=== PATIENT | female | born 1985 | race African-American/Black ===

== ENCOUNTER 2023-04-22 16:27 | Outpatient (REF) | payer BC, SELFPAY ==
[2023-04-22 17:08] LABS: Glucose CSF 52 mg/dL (40-70); Total Protein CSF 29 mg/dL (15-45); Total Protein CSF 31 mg/dL (15-45)
[2023-04-22 17:13] LABS: CSF Clarity CLEAR (CLEAR); CSF Color COLORLESS (COLORLESS); CSF Tube # 2
[2023-04-22 17:14] LABS: CSF Total Volume 20 mL; Red Blood Cell CSF 54 cubic mm; Red Blood Cell CSF Side 1 53; Red Blood Cell CSF Side 2 46; White Blood Cell CSF 0 cubic mm; White Blood Cell CSF Side 1 0; White Blood Cell CSF Side 2 0
[2023-04-22 17:15] LABS: CSF Clarity CLEAR (CLEAR); CSF Color COLORLESS (COLORLESS); CSF Total Volume 20 mL; CSF Tube # 3; Red Blood Cell CSF 161 cubic mm; Red Blood Cell CSF Side 1 135; Red Blood Cell CSF Side 2 155; White Blood Cell CSF 1 cubic mm; White Blood Cell CSF Side 1 2; White Blood Cell CSF Side 2 0
== END 2023-04-22 16:28 | disposition home or self-care (01) ==
LOC: LAB 16:27
PROVIDERS: Visit Provider Psychiatry & Neurology Neurology
DX: G93.2 Benign intracranial hypertension (principal)
CPT/HCPCS: 36415; 82164; 82945; 84157; 87070; 87205; 89050

== ENCOUNTER 2023-09-22 20:49 | Outpatient (OUT) | payer BC, SELFPAY ==
--- OUTSIDE RECORDS SUMMARY | 2023-09-22 20:51 | XMS_ITS | CCD ---
Author Organization [facility]iniSy[facility] Care Team Providers Care Teradata Solution Architect Name Role Phone REQUEST, DR NONE LISTED Primary Care Unavaila ble PAY, DR CORONA Consulting Unavailable PAY, DR CORONA Admitting Unavailable PAY, DR CORONA Attending Unavailable JACE BISWAS Consulting Unavailable Dago Quan Unavailable MD Dago Quan Attending Provider [phone] DO Loree Bri Primary Care Provider DO Loree Bri Primary Care Provider DO Eyad Chacko Emergency Provider MD Kevin Grullon Admit Provider MD Kevin Grullon Attending Provider [phone] MD Alfredo Gardner Other Provider DO Alejandro Wolff Other Provider MD Kirby Centeno Other Provider MD Shankar Perry Other Provider MD Bianka Aiken Other Provider [phone] MD Tran John Other Provider CELINE Clemente Other Provider MD Dago Quan Other Provider MD Sharif Rinaldi Other Provider DO Loree Bri Referring Provider [phone] DO Loree Bri Primary Care Provider DO Eyad Chacko Emergency Provider MD Kevin Grullon Admit Provider MD Kevin Grullon Attending Provider MD Alfredo Gardner Other Provider DO Alejandro Wolff Other Provider MD Kirby Centeno Other Provider [phone] MD Orladno Chaparro Other Provider MD Bianka Aiken Other Provider MD Tran John Other Provider CELINE Clemente Other Provider MD Dago Quan Other Provider MD Sharif Rinaldi Other Provider Rumschlag, DO Bri Referring Provider CELINE Capellan Attending Provider MD Dago Quan Attending Provider Samantha Capellan Admitting Unavailable Samantha Capellan Attending Unavailable Rumschlag, Bri Primary Care Unavailable Rumschlag, Bri Primary Care Unavailable Rumschlag, Bri Referring Unavailable Doamekpor, Kevin E Admitting Unavailab le Doamekpor, Kevin E Attending Unavailab le Rumschlag, Bri Primary Care Unavailable Alfredo Gardner Consulting Unavailabl e Doamekpor, Kevin E Admitting Unavailab le Kevin Grullon Attending Unavailab Alejandro Maldonado Consulting Unavailable Kirby Centeno Consulting Unavailable Orlando Chaparro Consulting Unavailable Bianka Aiken Consulting Unavailable Tran John Consulting Unavailable Jose Clemente Consulting Unavailable Asaad, Imad Consulting Unavailable Sharif Rinaldi Consulting Unavailable Asaad, Imad Admitting Unavailable Asaad, Imad Attending Unavailable Rumschlag, Bri Primary Care Unavailable Asaad, Imad Admitting Unavailable Asaad, Imad Attending Unavailable Rumschlag, Bri Primary Care Unavailable NURY RODRIGUEZ Referring Unavailable RUMSCHLAG, BRI K Primary Care Unavailable NURY RODRIGUEZ Attending Unavailable BRI AREVALO Referring Unavailable KAREN BROWNLEE Attending Unavailable NURY RODRIGUEZ Attending Unavailable BRI AREVALO Referring Unavailable PABLO VEE Attending Unavailable PABLO VEE Attending Unavailable Medications Current Medications Medication Drug Class(es) Dates Sig (Normalized) Sig (Original) [id number] actuat albuterol 0.09 mg/actuat metered dose inhaler (4 sources) beta2-Adrenergic Agonist take 1 puff(s) by inhalation every four hours as needed Albuterol Sulfate HFA 108 (90 Base) MCG/ACT 1 puff as needed Inhalation every 4 hrs Active take 1 puff(s) by in halation every four hours as needed Albuterol Sulfate HFA 108 (90 Base) MCG/ACT 1 puff as needed Inhalation every 4 hrs Active escitalopram 20 mg oral tablet (4 sources) Serotonin Reuptake Inhibitor take 1 tablet by mouth every twenty-four hours Lexapro 20 MG 1 tablet Orally Once a day Active loratadine 10 mg oral tablet (10 sources) Start: 08-07-19 take 1 tablet by mouth once daily Loratadine (Claritin) 10 mg Tablet Active 10 MG PO Daily August 05, 2022 11:00pm montelukast 10 mg oral tablet (11 sources) Leukotriene Receptor Antagonist Start: 01-22-20 Montelukast Active MG TABLET January 21, 2023 12:00am Start: 08-06-2022 End: 01-21-2023 take 10 mg by mouth once daily Montelukast Active 10 M G PO Daily January 20, 2023 11:00pm omeprazole 20 mg delayed release oral capsule (17 sources) Proton Pump Inhibitor Start: 03-26-2023 take 40 mg by mouth once daily Omeprazole Active 40 MG PO Daily March 26, 2023 1:06pm Start: 02-04-2023 take 1 capsule by [facility] once daily Omeprazole 40 MG 1 capsule 30 minutes before morning meal Orally Once a day for 30 days Jan, Active Start: 08-06-2022 End: 03-26-2023 take 20 mg by mouth once daily Omeprazole Discontinued 20 MG PO Daily January 21, 2023 11:00pm March 26, 2023 1:06pm Completed/Discontinued Medications Medication Drug Class(es) Dates Sig (Normalized) Sig (Original) Clindamycin Palmitate Hcl (Clindamycin Pediatric) 75 mg/5 mL recon soln (5 sources) Start: 01-21-2023 End: 01-22-2023 take 300 mg by mouth every six hours Clindamycin Palmitate Hcl (Clindamycin Pediatric) 75 mg/5 mL recon soln Discontinued 300 MG PO Q6H January 20, 2023 11:00pm January 22, 2023 3:37pm Start: 01-21-2023 End: 01-22-2023 take 300 mg by mouth every six hours Clindamycin Palmitate Hcl (Clindamycin Pediatric) 75 mg/5 mL recon soln Discontinued 300 MG PO Q6H January 21, 2023 12:00am January 22, 2023 4:37pm Start: 01-21-2023 Clindamycin Pa lmitate Hcl (Clindamycin Pediatric) 75 mg/5 mL recon soln Active January 21, 2023 12:00am fluticasone propionate 0.05 mg/actuat metered dose nasal spray (5 sources) Corticosteroid Start: 01-21-2023 End: 03-26-2023 Fluticasone Propionate Discontinued 1 SPRAY INTRANASAL Daily January 20, 2023 11:00pm March 26, 2023 1:06pm Start: 01-21-2023 Fluticasone Pr opionate Active INTRANASAL January 21, 2023 12:00am prednisoLONE (5 sources) Corticosteroid Start: 01-21-2023 End: 01-22-2023 Prednisolone Discontinued PO January 20, 2023 11:00pm January 22, 2023 3:37pm Start: 01-21-2023 End: 01-22-2023 Prednisolone Discontinued PO January 21, 2023 12:00am January 22, 2023 4:37pm Start: 01-21-2023 Prednisolone A ctive PO January 21, 2023 12:00am Problems Problem Classification Problem Date Documented Date Episodic/Chronic Anxiety disorders (1 source) Anxiety disorder, unspecified; Translations: [ANXIETY DISORDER UNSPECIFIED] Onset: 3 Chronic Conditions associated with dizziness or vertigo (1 source) Dizziness and giddiness; Translations: [Dizziness and giddiness] Onset: 3 Episodic Esophageal disorders (10 sources) Gastroesophageal reflux disease; Translations: [Gastro-esophageal reflux disease without esophagitis] Onset: 3 01-22-2023 Chronic Nonspecific chest pain (4 sources) Chest pain, unspecified; Translations: [CHEST PAIN UNSPECIFIED] Onset: 3 Episodic Other aftercare (1 source) snf (current) use of hormonal contraceptives; Translations: [ASSISTED HORMONAL CONTRACEPTIVES] Onset: 3 Episodic Other aftercare (1 source) Other supervisor intermediates (current) drug therapy; Translations: [OTH RE EXAMINER CURRENT DRUG THERAPY] Onset: 3 Episodic Other gastrointestinal disorders (4 sources) Feeling of lump in throat; Translations: [Other specified symptoms and signs involving the digestive system and abdomen] Episodic Other gastrointestinal disorders (9 sources) Dysphagia; Translations: [Dysphagia, unspecified] 01-21-2023 Episodic Other gastrointestinal disorders (8 sources) Dysphagia, unspecified; Translations: [Dysphagia, unspecified] Onset: 3 Episodic Other gastrointestinal disorders (5 sources) History of stricture of esophagus; Translations: [Personal history of other diseases of the digestive system] 01-21-2023 Episodic Other gastrointestinal disorders (6 sources) Personal history of other diseases of the digestive system; Translations: [Personal history of other diseases of digestive system] Onset: 3 01-21-2023 Episodic Other gastrointestinal disorders (1 source) Dysphagia, pharyngoesophageal phase; Translations: [Dysphagia, pharyngoesophageal phase] Onset: 4 Episodic Other nutritional; endocrine; and metabolic disorders (5 sources) Weight loss; Translations: [Abnormal weight loss] 01-21-2023 Episodic Other nutritional; endocrine; and metabolic disorders (6 sources) Abnormal weight loss; Translations: [Loss of weight] Onset: 3 01-21-2023 Episodic Results Test Name Value Interpretation Reference Range Facility [place] ESOPHAGUSon 04-21-2023 FL ESOPHAGUS FL ESOPHAGUS Esophagogram HISTORY: Dysphagia, pharyngoesophageal phase COMPARISON: None. PROCEDURE: With the patient upright and after the ingestion of effervescent granules, thick barium was ingested and fluoroscopic spot films of the esophagus and gastroesophageal junction were obtained. After this, the patient was turned prone and during the ingestion of thin barium, fluoroscopic spot films of the esophagus and gastroesophageal junction were obtained. FINDINGS: Test swallow was performed, without evidence of los aspiration. Esophageal caliber and mucosal pattern are normal. There are no esophageal strictures, diverticula, or abnormal filling defects. No hiatal hernia. Esophageal dysmotility, with splitting of the contrast bolus, rumination, tertiary contractions visualized. Spontaneous gastroesophageal reflux is observed to the level of the upper thoracic esophagus. 1.5 minutes fluoroscopy time utilized. Reference air kerma 4.4 mGy IMPRESSION: 1. Spontaneous gastroesophageal reflux. 2. Esophageal dysmotility. Finalized by Tanmay Philip on 04/21/2023 12:22 PM Normal [facility] HCG ( test) Jaaj keene Ql (U)Ordered By: Dago Quan on 03-30-2023 HCG ( test) Ql (U) Negative [facility] HCG,Urineon 03-30-2023 Beta HCG ( test) Ql (U) Negative Normal [facility] Comment on above: Result Comment: PERF ORMED BY: [place] [address] PATHOLOGIST HEALTHCARE APPLICATIONS ANALYST MAKENNA NEWMAN M.D. Performed By: #### U HCG #### [address] 03-30-2023 L ------ Specimen: [id number] Received: 03/30/23 Status: GRANT Delatorre Num: [id number] Spec Type: Surgical Subm Dr: Dago Quan MD Tissues: A Esophagus Biopsy (ESOPHAGUS BX) Procedures: HE/2, Gross/Micro L4 Age/ Patient Sex Location Account Attending Physician Brandi Gaviria 37/F [id number] Dago Quan MD SPEC NUM: [id number] RECD: 03/30/23 STATUS: GRANT DELATORRE NUM: [id number] ELMO: 03/30/[address] [facility] [address]: Dago Quan MD ENTERED: 03/30/[address] [facility] [address]: EDGARD TYPE: Surgical DEPT: S ORDERED: HE/2, Gross/Micro L4 ORDERED: HE/2, Gross/Micro L4 Pathological Diagnosis Esophagus, Biopsy: Reflux-type Changes. - No Evidence Of Eosinophilic Esophagitis. Clinical Information Dysphagia, rule out EOE Gross Description Received in formalin labeled with the patient's name, date of and esophagus biopsy rule out EOE are three montano tissues ranging from 0.2 x 0.1 x 0.1 cm to 0.3 x 0.2 x 0.1 cm. Entirely submitted in one cassette labeled A1. Microscopic Description Two H E slides reviewed. The microscopic examination confirms the diagnosis. CPT Codes 02143 Specimen: [id number] Received: 03/30/23 Status: GRANT Adkinsjohnson Num: [id number] Spec Type: Surgical Subm Dr: Dago Quan MD Tissues: A Esophagus Biopsy (ESOPHAGUS BX) Procedures: Paige CASAS/Maria Del Rosario L4 Patient: Brandi Gaviria [id number] (Continued) Signed (signature on file) Jovon Beasley MD 03/31/232141 [facility] MR head/brain wo/w ha MR head/brain wo/w con [facility] [place] [address] [place] [address] MRI Report Signed Patient: Brandi Gaviria MR#: [id number] : 1985 Acct:[id number] Age/Sex: 37 / F ADM Date: 03/19/23 Loc: MR Room: Type: [facility] Attending Dr: Samantha Capellan APRN Copies to: Samantha Capellan APRN Ordering Provider: Samantha Capellan APRN Date of Service: 03/19/23 MR/MR head/brain wo/w con: R42,R26.89 MR head/brain wo/w con 03/19/2023 1:50 PM SIGN AND SYMPTOMS: Vertigo, unsteady gait PROTOCOL: Multiplanar multisequence MR images of the brain were obtained with and without IV contrast CONTRAST: 16 mL of intravenous ProHance COMPARISON: None. FINDINGS: Extra axial spaces: Age appropriate. Hemorrhage: There is susceptibility in the left temporal lobe which is centrally T2 hyperintense consistent with a cavernous malformation. This measures approximately 1 cm in greatest dimension. Ventricular system: Within normal limits. Basal cisterns: Within normal limits and not effaced. Cerebral parenchyma: Normal in signal. Midline shift: None.. Cerebellum: Within normal limits. Brainstem: Within normal limits. OTHER: Calvarium: Normal marrow signal. Vascular system: Satisfactory flow voids within the anterior and posterior circulation. There is a developmental venous anomaly in the left temporal lobe. There is narrowing of the posterior lateral transverse sinuses. Visualized Paranasal sinuses: Within normal limits. Visualized Orbits: There is prominence of CSF along the optic nerve sheath complex bilaterally Visualized upper cervical spine: Within normal limits. Sella and skull base: There is flattening of the pituitary within the sella. MR/MR head/brain wo/w con IMPRESSION: There is susceptibility in the left temporal lobe which is centrally T2 hyperintense consistent with a cavernous malformation. This measures approximately 1 cm in greatest dimension. This is accompanied by a developmental venous anomaly. There are additional findings suspicious for intracranial hypertension. Impression dictated by: Chalo Lucas M.D.03/19/2023 3:37 PM Dictation Location: [place] [address] Transcribed By: JAYANT 03/19/23 1537 Dictated By: Chalo Lucas II, MD 03/19/23 1529 Signed By: 03/19/23 1537 Normal [facility] Activated partial thrombopla stin time (aPTT) in platelet poor plasma by coagulation aOrdered By: Kevin Grullon on 01-22-2023 aPTT Coag (PPP) [Time] 30.8 s 25.1-36.5 [facility] Comment on above: A hematocrit value g reater than 55% may lead to inaccurate results in coagulation testing. Patients having hematocrit values >55% require a special collection tube for coagulation studies. Please contact the laboratory at [phone] for redraw instructions. Alanine aminotransferase [En zymatic activity/volume] in Serum or PlasmaOrdered By: Kevin Grullon on 01-22-2023 ALT [Catalytic activity/Vol] 26 U/L 7-52 [facility] Albumin [Mass/volume] in Ser um or Plasma by Bromocresol green (BCG) dye binding methoOrdered By: Kevin Grullon on 01-22-2023 Albumin BCG dye [Mass/Vol] 3.4 g/dL 3.5-5.7 [facility] Alkaline phosphatase [Enzyma tic activity/volume] in Serum or PlasmaOrdered By: Kevin Grullon on 01-22-2023 ALP [Catalytic activity/Vol] 55 U/L 34-104 [facility] Aspartate aminotransferase [ Enzymatic activity/volume] in Serum or PlasmaOrdered By: Kevin Grullon on 01-22-2023 AST [Catalytic activity/Vol] 21 U/L 13-39 [facility] Basophils Auto (Bld) [#/Vol] Ordered By: Kevin Grullon on 01-22-2023 Basophils (Bld) [#/Vol] 0.1 10*3/uL 0.0-0.2 [facility] Basophils/100 WBC Auto (Bld) Ordered By: Kevin Grullon on 01-22-2023 Basophils/100 WBC (Bld) 1.5 % . [facility] Bilirubin.total [Mass/volume ] in Serum or PlasmaOrdered By: Kevin Grullon on 01-22-2023 Bilirubin [Mass/Vol] 0.3 mg/dL 0.3-1.0 [facility] Calcium [Mass/volume] in Ser um or PlasmaOrdered By: Kevin Grullon on 01-22-2023 Calcium [Mass/Vol] 8.9 mg/dL 8.6-10.3 [facility] Carbon dioxide, total [Moles /volume] in Serum or PlasmaOrdered By: Kevin Grullon on 01-22-2023 CO2 [Moles/Vol] 31.6 mmol/L 21.0-31.0 [facility] Chloride [Moles/volume] in S lakesha or PlasmaOrdered By: Kevin Grullon on 01-22-2023 Chloride [Moles/Vol] 105 mmol/L 98-107 [facility] Cholesterol [Mass/volume] in Serum or PlasmaOrdered By: Kevin Grullon on 01-22-2023 Cholesterol [Mass/Vol] 130 mg/dL 140-200 [facility] Comment on above: Chol less than 200 m g/dl low riskChol 201-239 mg/dl borderline riskChol 240 mg/dl and greater high risk Cholesterol in LDL Calc [Mas s/Vol]Ordered By: Kevin Grullon on 01-22-2023 Cholesterol in LDL [Mass/Vol] 90 mg/dL 0-100 [facility] Comment on above: LDL ATP III CLASSIFI CATIONLDL less than 100 mg/dL OptimalLDL 100-129 mg/dL Near or above optimalLDL 130-159 mg/dL Borderline highLDL 160-189 mg/dL HighLDL greater than 189 mg/dL Very high Cholesterol in VLDL Calc [Ma ss/Vol]Ordered By: Kevin Grullon on 01-22-2023 Cholesterol in VLDL [Mass/Vol] 20 mg/dL [facility] Complete Blood Count Auto Di ffon 01-22-2023 Basophils (Bld) [#/Vol] 0.1 10*3/uL Normal 0.0-0.2 [facility] Comment on above: Result Comment: PERF ORMED BY: [facility] [address] PATHOLOGIST HEALTHCARE APPLICATIONS ANALYST MAKENNA NEWMAN M.D. Performed By: #### P TT, CMP, CBC, TSH3 wRFLX, LIPID, PT #### [address] Basophils/100 WBC (Bld) 1.5 % Normal . [facility] Comment on above: Performed By: #### P TT, CMP, CBC, TSH3 wRFLX, LIPID, PT #### [address] Eosinophils (Bld) [#/Vol] 0.1 10*3/uL Normal 0.0-0.45 [facility] Comment on above: Performed By: #### P TT, CMP, CBC, TSH3 wRFLX, LIPID, PT #### [address] Eosinophils/100 WBC (Bld) 2.0 % Normal . [facility] Comment on above: Performed By: #### P TT, CMP, CBC, TSH3 wRFLX, LIPID, PT #### [address] Erythrocyte distribution width (RBC) [Ratio] 14.2 % Normal 11.9-15.3 [facility] Comment on above: Performed By: #### P TT, CMP, CBC, TSH3 wRFLX, LIPID, PT #### [address] Hematocrit (Bld) [Volume fraction] 35.1 % Normal 34.0-46.4 [facility] Comment on above: Performed By: #### P TT, CMP, CBC, TSH3 wRFLX, LIPID, PT #### [address] Hemoglobin (Bld) [Mass/Vol] 11.5 g/dL Low 11.8-15.4 [facility] Comment on above: Performed By: #### P TT, CMP, CBC, TSH3 wRFLX, LIPID, PT #### [address] [place] [address] [place] Lymphocytes (Bld) [#/Vol] 2.5 10*3/uL Normal 1.00-4.8 [facility] Comment on above: Performed By: #### P TT, CMP, CBC, TSH3 wRFLX, LIPID, PT #### [address] Lymphocytes/100 WBC (Bld) 37.3 % Normal . [facility] Comment on above: Performed By: #### P TT, CMP, CBC, TSH3 wRFLX, LIPID, PT #### [address] MCH (RBC) [Entitic mass] 27.7 pg Normal 24.7-34.3 [facility] Comment on above: Performed By: #### P TT, CMP, CBC, TSH3 wRFLX, LIPID, PT #### [address] MCV (RBC) [Entitic vol] 84.4 fL Normal 80-100 [facility] Comment on above: Performed By: #### P TT, CMP, CBC, TSH3 wRFLX, LIPID, PT #### [address] Mean Corpuscular HGB Conc 32.8 g/dL Normal 32.0-35.0 [facility] Comment on above: Performed By: #### P TT, CMP, CBC, TSH3 wRFLX, LIPID, PT #### [address] Monocytes (Bld) [#/Vol] 0.4 10*3/uL Normal 0.0-0.8 [facility] Comment on above: Performed By: #### P TT, CMP, CBC, TSH3 wRFLX, LIPID, PT #### [address] Monocytes/100 WBC (Bld) 6.4 % Normal . [facility] Comment on above: Performed By: #### P TT, CMP, CBC, TSH3 wRFLX, LIPID, PT #### [facility] [address] [place] [address] [place] Neutrophils (Bld) [#/Vol] 3.5 10*3/uL Normal 1.8-7.7 [facility] Comment on above: Performed By: #### P TT, CMP, CBC, TSH3 wRFLX, LIPID, PT #### [facility] [address] [place] [address] [place] Neutrophils/100 WBC (Bld) 52.8 % Normal . [facility] Comment on above: Performed By: #### P TT, CMP, CBC, TSH3 wRFLX, LIPID, PT #### [place] [address] [place] NRBC% 0.1 /100{WBC} Normal 0-0.5 [facility] Comment on above: Performed By: #### P TT, CMP, CBC, TSH3 wRFLX, LIPID, PT #### [address] Platelet mean volume (Bld) [Entitic vol] 10.3 fL Normal 6.3-10.7 [facility] Comment on above: Performed By: #### P TT, CMP, CBC, TSH3 wRFLX, LIPID, PT #### [place] [address] [place] Platelets (Bld) [#/Vol] 244 10*3/uL Normal 150-450 [facility] Comment on above: Performed By: #### P TT, CMP, CBC, TSH3 wRFLX, LIPID, PT #### [place] [address] [place] RBC (Bld) [#/Vol] 4.16 10*6/uL Normal 3.60-5.00 [facility] Comment on above: Performed By: #### P TT, CMP, CBC, TSH3 wRFLX, LIPID, PT #### [place] [address] [place] WBC (Bld) [#/Vol] 6.7 10*3/uL Normal 3.8-11.6 [facility] Comment on above: Performed By: #### P TT, CMP, CBC, TSH3 wRFLX, LIPID, PT #### [facility] [address] [place] [address] Comprehensive Metabolic Pane warner 01-22-2023 Albumin [Mass/Vol] 3.4 g/dL Low 3.5-5.7 [facility] Comment on above: Order Comment: FASTI NG Y Performed By: #### P TT, CMP, CBC, TSH3 wRFLX, LIPID, PT #### [facility] [address] [place] [address] Albumin/Globulin [Mass ratio] 1.3 {ratio} Normal [facility] Comment on above: Order Comment: FASTI NG Y Performed By: #### P TT, CMP, CBC, TSH3 wRFLX, LIPID, PT #### [address] ALP [Catalytic activity/Vol] 55 U/L Normal 34-104 [facility] Comment on above: Order Comment: FASTI NG Y Performed By: #### P TT, CMP, CBC, TSH3 wRFLX, LIPID, PT #### [facility] [address] [place] [address] ALT [Catalytic activity/Vol] 26 U/L Normal 7-52 [facility] Comment on above: Order Comment: FASTI NG Y Performed By: #### P TT, CMP, CBC, TSH3 wRFLX, LIPID, PT #### [facility] [address] [place] [address] Anion gap [Moles/Vol] 8.4 mmol/L Normal 6.0-15.0 [facility] Comment on above: Order Comment: FASTI NG Y Performed By: #### P TT, CMP, CBC, TSH3 wRFLX, LIPID, PT #### [address] AST [Catalytic activity/Vol] 21 U/L Normal 13-39 [facility] Comment on above: Order Comment: FASTI NG Y Performed By: #### P TT, CMP, CBC, TSH3 wRFLX, LIPID, PT #### [facility] [address] Bilirubin [Mass/Vol] 0.3 mg/dL Normal 0.3-1.0 [facility] Comment on above: Order Comment: FASTI NG Y Performed By: #### P TT, CMP, CBC, TSH3 wRFLX, LIPID, PT #### [facility] [address] Calcium [Mass/Vol] 8.9 mg/dL Normal 8.6-10.3 [facility] Comment on above: Order Comment: FASTI NG Y Performed By: #### P TT, CMP, CBC, TSH3 wRFLX, LIPID, PT #### [facility] [address] [place] [address] Chloride [Moles/Vol] 105 mmol/L Normal 98-107 [facility] Comment on above: Order Comment: FASTI NG Y Performed By: #### P TT, CMP, CBC, TSH3 wRFLX, LIPID, PT #### [facility] [address] [place] [address] CO2 [Moles/Vol] 31.6 mmol/L High 21.0-31.0 [facility] Comment on above: Order Comment: FASTI NG Y Performed By: #### P TT, CMP, CBC, TSH3 wRFLX, LIPID, PT #### [facility] [address] [place] [address] Creatinine [Mass/Vol] 0.77 mg/dL Normal 0.60-1.20 [facility] Comment on above: Order Comment: FASTI NG Y Performed By: #### P TT, CMP, CBC, TSH3 wRFLX, LIPID, PT #### [facility] [address] [place] [address] [place] Creatinine Clr Calc Pharmacy 97.37 [facility] Comment on above: Order Comment: FASTI NG Y Performed By: #### P TT, CMP, CBC, TSH3 wRFLX, LIPID, PT #### [facility] [address] [place] [address] [place] GFR/1.73 sq M.predicted MDRD (S/P/Bld) [Vol rate/Area] mL/min/{1.73_m2} [facility] Comment on above: Order Comment: FASTI NG Y Performed By: #### P TT, CMP, CBC, TSH3 wRFLX, LIPID, PT #### [facility] [address] Globulin (S) [Mass/Vol] 2.7 g/dL [facility] Comment on above: Order Comment: FASTI NG Y Performed By: #### P TT, CMP, CBC, TSH3 wRFLX, LIPID, PT #### [facility] [address] Glucose [Mass/Vol] 101 mg/dL High 70-100 [facility] Comment on above: Order Comment: FASTI NG Y Result Comment: [place] Glucose Reference Range is dependent on time and content of last meal. Glucose of more than 200 mg/dL in a nonstressed, ambulatory subject supports the diagnosis of Diabetes Mellitus. ADA recommended reference range Performed By: #### P TT, CMP, CBC, TSH3 wRFLX, LIPID, PT #### [facility] [address] [place] [address] Potassium [Moles/Vol] 4.0 mmol/L Normal 3.5-5.1 [facility] Comment on above: Order Comment: FASTI NG Y Performed By: #### P TT, CMP, CBC, TSH3 wRFLX, LIPID, PT #### [facility] [address] Protein [Mass/Vol] 6.1 g/dL Low 6.4-8.9 [facility] Comment on above: Order Comment: FASTI NG Y Performed By: #### P TT, CMP, CBC, TSH3 wRFLX, LIPID, PT #### [facility] [address] Sodium [Moles/Vol] 141 mmol/L Normal 136-145 [facility] Comment on above: Order Comment: FASTI NG Y Performed By: #### P TT, CMP, CBC, TSH3 wRFLX, LIPID, PT #### [facility] [address] [place] [id number] [place] Urea nitrogen [Mass/Vol] 6 mg/dL Low 7-25 [facility] Comment on above: Order Comment: FASTI NG Y Performed By: #### P TT, CMP, CBC, TSH3 wRFLX, LIPID, PT #### [facility] [address] [place] [id number] [place] Creatinine [Mass/volume] in Serum or PlasmaOrdered By: Kevin Grullon on 01-22-2023 Creatinine [Mass/Vol] 0.77 mg/dL 0.60-1.20 [facility] Eosinophils Auto (Bld) [#/Vo l]Ordered By: Kevin Grullon on 01-22-2023 Eosinophils (Bld) [#/Vol] 0.1 10*3/uL 0.0-0.45 [facility] Eosinophils/100 WBC Auto (Bl d)Ordered By: Kevin Grullon on 01-22-2023 Eosinophils/100 WBC (Bld) 2.0 % . [facility] Erythrocyte distribution wid th Auto (RBC) [Ratio]Ordered By: Kevin Grullon on 01-22-2023 Erythrocyte distribution width (RBC) [Ratio] 14.2 % 11.9-15.3 [facility] Globulin Calc (S) [Mass/Vol] Ordered By: Kevinwilliams Grullon on 01-22-2023 Globulin (S) [Mass/Vol] 2.7 g/dL [facility] Glucose [Mass/volume] in Ser um or PlasmaOrdered By: Kevin Grullon on 01-22-2023 Glucose [Mass/Vol] 101 mg/dL 70-100 [facility] Comment on above: ADA recommended refe rence rangeRandom Glucose Reference Range is dependent on time and content of last meal. Glucose of more than 200 mg/dL in a nonstressed, ambulatory subject supports the diagnosis of Diabetes Mellitus. HCG ( test) IA.rapi d Ql (U)Ordered By: Dago Quan on 01-22-2023 HCG ( test) Ql (U) Negative [facility] HCG,Urineon 10-27-2023 Beta HCG ( test) Ql (U) Negative Normal [facility] Comment on above: Result Comment: PERF ORMED BY: [place] [address] PATHOLOGIST HEALTHCARE APPLICATIONS ANALYST MAKENNA NEWMAN M.D. Performed By: #### U HCG #### [address] Hematocrit Auto (Bld) [Volum e fraction]Ordered By: Kevin Grullon on 01-22-2023 Hematocrit (Bld) [Volume fraction] 35.1 % 34.0-46.4 [facility] Hemoglobin [Mass/volume] in BloodOrdered By: Kevin [facility] on 01-22-2023 Hemoglobin (Bld) [Mass/Vol] 11.5 g/dL 11.8-15.4 [facility] INR in Platelet poor plasma by Coagulation assayOrdered By: Kevin [facility] on 01-22-2023 INR Coag (PPP) [Relative time] 1.1 {INR} [facility] Comment on above: INR Therapeutic Rang e A) Pre- and Peroperative OAT started two weeks before surgery. NOT HIP SURGERY: 1.5 - 2.5 HIP SURGERY: 2 - 3B) Primary and secondary prevention of venous THROMBOSIS: 2 - 3C) Active venous thrombosis, pulmonary embolismand prevention of recurrent venous thrombosis: 2 - 3D) Prevention of arterial thromboembolismincluding patients with mechanical heart valves: 3 - 4.5 [facility] 01-22-2023 L ------ Specimen: [id number] Received: 01/22/23 Status: GRANT Delatorre Num: [id number] Spec Type: Surgical Subm Dr: Dago Quan MD Tissues: A Esophagus Biopsy (ESOPHAGEAL STRICTURE) Procedures: PAS - LGRN, HE/5, Gross/Micro L4, GMS II Dark Age/ Patient Sex Location Account Attending Physician Brandi Gaviria 37/F [id number] Kevin Grullon MD SPEC NUM: [id number] RECD: 01/22/23 STATUS: GRANT DELATORRE NUM: [id number] ELMO: 01/22/23 DR: Dago Quan MD ENTERED: 01/22/[address] [facility] [address]: EDGARD TYPE: Surgical DEPT: S ORDERED: PAS - LGRN, HE/5, Gross/Micro L4, GMS II Dark ORDERED: PAS - LGRN, HE/5, Gross/Micro L4, GMS II Dark Pathological Diagnosis Esophagus, stricture, biopsy: - Squamous esophageal and cardiac mucosa with acute and chronic nonspecific cardio- esophagitis - Negative for intestinal metaplasia or dysplasia Note: Special staining with GMS and PAS is negative for fungal microorganisms. Appropriate positive controls reviewed. Clinical Information Dysphagia Gross Description Received in formalin labeled with the patient's name, date of and esophageal stricture are two montano tissues measuring 0.1 cm and 0.2 cm. Entirely submitted in one cassette labeled A1. Microscopic Description Two H E slides reviewed. The microscopic examination confirms the diagnosis. Specimen: [id number] Received: 01/22/23 Status: GRANT Delatorre Num: [id number] Spec Type: Surgical Subm Dr: Dago Quan MD Tissues: A Esophagus Biopsy (ESOPHAGEAL STRICTURE) Procedures: ANH MITCHELL, SIVAKUMAR/5, Gross/Micro L4, GMS II Dark Patient: Brandi Gaviria [id number] (Continued) Specimen: [id number] Received: 01/22/23 (Continued) Signed (signature on file) Kalpesh Alva MD 01/26/23 4689 Specimen: [id number] Received: 01/22/23 Status: GRANT Delatorre Num: [id number] Spec Type: Surgical Subm Dr: Dago Quan MD Tissues: A Esophagus Biopsy (ESOPHAGEAL STRICTURE) Procedures: ANH - MORRISN, HE/5, Gross/Micro L4, GMS II Dark Patient: Evangelina Gaviriayogi Almodovar [id number] (Continued) Specimen: [id number] Received: 01/22/23 (Continued) CPT Codes 28237 Specimen: [id number] Received: 01/22/23 Status: GRANT Delatorre Num: [id number] Spec Type: Surgical Subm Dr: Dago Quan MD Tissues: A Esophagus Biopsy (ESOPHAGEAL STRICTURE) Procedures: ANH - MORRISN, HE/5, Gross/Micro L4, GMS II Dark Patient: Brandi Gaviria [id number] (Continued) Signed (signature on file) Kalpesh Alva MD 01/26/23 1649 [facility] Leukocytes [#/volume] correc ion for nucleated erythrocytes in Blood by Automated counOrdered By: Kevin Grullon on 01-22-2023 WBC corrected for nucl RBC Auto (Bld) [#/Vol] 6.7 10*3/uL 3.8-11.6 [facility] Lipid Panelon 01-22-2023 Cholesterol [Mass/Vol] 130 mg/dL Low 140-200 [facility] Comment on above: Order Comment: LIDIA [place] Result Comment: Chol less than 200 mg/dl low risk Chol 201-239 mg/dl borderline risk Chol 240 mg/dl and greater high risk Performed By: #### P TT, CMP, CBC, TSH3 wRFLX, LIPID, PT ####[facility] [place] [id number] [facility] Cholesterol in HDL [Mass/Vol] 20 mg/dL Low 23-92 [facility] Comment on above: Order Comment: FASTI NG Y Result Comment: HDL CHOL ATP-III CLASSIFICATION Cardiovascular Risk HDL > or equal to 60 mg/dL LOW HDL < 40 mg/dL HIGH Performed By: #### P TT, CMP, CBC, TSH3 wRFLX, LIPID, PT ####[address] [place] [address] [facility] Cholesterol.total/Chol esterol in HDL [Mass ratio] 6.5 {ratio} Normal <5.0 [facility] Comment on above: Order Comment: FASTI NG Y Performed By: #### P TT, CMP, CBC, TSH3 wRFLX, LIPID, PT ####[place] [id number] [facility] LDL Cholesterol,Calculated 90 mg/dL Normal 0-100 [facility] Comment on above: Order Comment: FASTI NG Y Result Comment: LDL ATP III CLASSIFICATION LDL less than 100 mg/dL Optimal LDL 100-129 mg/dL Near or above optimal LDL 130-159 mg/dL Borderline high LDL 160-189 mg/dL High LDL greater than 189 mg/dL Very high Performed By: #### P TT, CMP, CBC, TSH3 wRFLX, LIPID, PT ####[place] [id number] [facility] Triglyceride w/Reflex 100 mg/dL Normal 0-149 [facility] Comment on above: Order Comment: FASTI NG Y Result Comment: TRIG ATP III CLASSIFICATION TRIG less than 150 mg/dL Normal TRIG 150-199 mg/dL Borderline high TRIG 200-500 mg/dL High TRIG greater than 500 mg/dL Very high Standard traceable to the Center for Disease Conrtrol and Prevention (CDC) test method. Performed By: #### P TT, CMP, CBC, TSH3 wRFLX, LIPID, PT ####[place] [id number] [facility] VLDL CHOLESTEROL 20 mg/dL Normal [facility] Comment on above: Order Comment: FASTI KIMBERLEE Y Performed By: #### P TT, CMP, CBC, TSH3 wRFLX, LIPID, PT ####[facility] [id number] Lymphocytes Auto (Bld) [#/Vo l]Ordered By: Kevin Grullon on 01-22-2023 Lymphocytes (Bld) [#/Vol] 2.5 10*3/uL 1.00-4.8 [facility] Lymphocytes/100 WBC Auto (Bl d)Ordered By: Kevin Grullon on 01-22-2023 Lymphocytes/100 WBC (Bld) 37.3 % . [facility] MCH Auto (RBC) [Entitic mass ]Ordered By: Kevin Grullon on 01-22-2023 MCH (RBC) [Entitic mass] 27.7 pg 24.7-34.3 [facility] MCHC Auto (RBC) [Mass/Vol]Or dered By: Kevin Grullon on 01-22-2023 MCHC (RBC) [Mass/Vol] 32.8 g/dL 32.0-35.0 [facility] MCV Auto (RBC) [Entitic vol] Ordered By: Kevin Grullon on 01-22-2023 MCV (RBC) [Entitic vol] 84.4 fL 80-100 [facility] Monocytes Auto (Bld) [#/Vol] Ordered By: Kevin Grullon on 01-22-2023 Monocytes (Bld) [#/Vol] 0.4 10*3/uL 0.0-0.8 [facility] Monocytes/100 WBC Auto (Bld) Ordered By: Kevin Grullon on 01-22-2023 Monocytes/100 WBC (Bld) 6.4 % . [facility] Neutrophils Auto (Bld) [#/Vo l]Ordered By: Kevin Grullon on 01-22-2023 Neutrophils (Bld) [#/Vol] 3.5 10*3/uL 1.8-7.7 [facility] Neutrophils/100 WBC Auto (Bl d)Ordered By: Kevin Grullon on 01-22-2023 Neutrophils/100 WBC (Bld) 52.8 % . [facility] No Panel InformationOrdered By: Kevin Grullon on 01-22-2023 Estimated GFR (CKD-EPI) > 60.0 mL/Min [facility] Creatinine Clearance (Chem 97.37 [facility] Nucleated erythrocytes [Pres ence] in Blood by Automated countOrdered By: Kevin Grullon on 01-22-2023 Nucleated RBC Auto Ql (Bld) 0.1 /100{WBC} 0-0.5 [facility] Partial Thromboplastin Timeo n 01-22-2023 aPTT Coag (Bld) [Time] 30.8 s Normal 25.1-36.5 [facility] Comment on above: Result Comment: A he matocrit value greater than 55% may lead to inaccurate results in coagulation testing. Patients having hematocrit values >55% require a special collection tube for coagulation studies. Please contact the laboratory at [phone] for redraw instructions. PERFORMED BY: [facility] [address] [place] [address] PATHOLOGIST HEALTHCARE APPLICATIONS ANALYST MAKENNA NEWMAN M.D. Performed By: #### P TT, CMP, CBC, TSH3 wRFLX, LIPID, PT ####[facility] [id number] [place] [address] [facility] Platelet mean volume Auto (B ld) [Entitic vol]Ordered By: Kevin Grullon on 01-22-2023 Platelet mean volume (Bld) [Entitic vol] 10.3 fL 6.3-10.7 [facility] Platelets Auto (Bld) [#/Vol] Ordered By: Kevin Grullon on 01-22-2023 Platelets (Bld) [#/Vol] 244 10*3/uL 150-450 [facility] Potassium [Moles/volume] in Serum or PlasmaOrdered By: Kevin Grullon on 01-22-2023 Potassium [Moles/Vol] 4.0 mmol/L 3.5-5.1 [facility] Protein [Mass/volume] in Ser um or PlasmaOrdered By: Kevin Grullon on 01-22-2023 Protein [Mass/Vol] 6.1 g/dL 6.4-8.9 [facility] Prothrombin Time INRon 01-22 INR Coag (PPP) [Relative time] 1.1 {INR} Normal [facility] Comment on above: Result Comment: INR Therapeutic Range A) Pre- and Peroperative OAT started two weeks before surgery. NOT HIP SURGERY: 1.5 - 2.5 HIP SURGERY: 2 - 3 B) Primary and secondary prevention of venous THROMBOSIS: 2 - 3 C) Active venous thrombosis, pulmonary embolism and prevention of recurrent venous thrombosis: 2 - 3 D) Prevention of arterial thromboembolism including patients with mechanical heart valves: 3 - 4.5 Performed By: #### P TT, CMP, CBC, TSH3 wRFLX, LIPID, PT ####[facility] [place] [id number] [facility] PT Coag (PPP) [Time] 13.2 s High 9.0-12.9 [facility] Comment on above: Result Comment: A he matocrit value greater than 55% may lead to inaccurate results in coagulation testing. Patients having hematocrit values >55% require a special collection tube for coagulation studies. Please contact the laboratory at [phone] for redraw instructions. Performed By: #### P TT, CMP, CBC, TSH3 wRFLX, LIPID, PT ####[facility] [place] [id number] [facility] Prothrombin time (PT)Ordered By: Kevin Grullon on 01-22-2023 PT Coag (PPP) [Time] 13.2 s 9.0-12.9 [facility] Comment on above: A hematocrit value g reater than 55% may lead to inaccurate results in coagulation testing. Patients having hematocrit values >55% require a special collection tube for coagulation studies. Please contact the laboratory at [phone] for redraw instructions. RBC Auto (Bld) [#/Vol]Ordere d By: Kevin Grullon on 01-22-2023 RBC (Bld) [#/Vol] 4.16 10*6/uL 3.60-5.00 [facility] Serum or plasma albumin/glob ulin mass ratioOrdered By: Kevin Grullon on 01-22-2023 Albumin/Globulin [Mass ratio] 1.3 {ratio} [facility] Serum or plasma anion gap de terminationOrdered By: Kevin Grullon on 01-22-2023 Anion gap [Moles/Vol] 8.4 mmol/L 6.0-15.0 [facility] Serum or plasma high density lipoprotein (HDL) cholesterol measurementOrdered By: Kevin Grullon on 01-22-2023 Cholesterol in HDL [Mass/Vol] 20 mg/dL 23-92 [facility] Comment on above: HDL CHOL ATP-III CLA SSIFICATION Cardiovascular RiskHDL > or equal to 60 mg/dL LOWHDL < 40 mg/dL HIGH Serum or plasma total choles terol/high density lipoprotein (HDL) cholesterol mass ratOrdered By: Kevin Grullon on 01-22-2023 Cholesterol.total/Chol esterol in HDL [Mass ratio] 6.5 {ratio} <5.0 [facility] Sodium [Moles/volume] in Ser um or PlasmaOrdered By: Kevin Grullon on 01-22-2023 Sodium [Moles/Vol] 141 mmol/L 136-145 [facility] Thyroid Stim Hormone w/Rflxo n 01-22-2023 Thyroid Stim Hormone w/Rflx 1.46 u[iU]/mL Normal 0.45-5.33 [facility] Comment on above: Order Comment: FASTI NG Y Result Comment: PERF ORMED BY: [facility] [address] [place] [address] PATHOLOGIST HEALTHCARE APPLICATIONS ANALYST MAKENNA NEWMAN M.D. Performed By: #### P TT, CMP, CBC, TSH3 wRFLX, LIPID, PT ####[facility] [id number] [place] [address] [facility] Thyrotropin [Units/volume] i n Serum or PlasmaOrdered By: Kevin Grullon on 01-22-2023 TSH Qn 1.46 m[IU]/L 0.45-5.33 [facility] Triglyceride [Mass/volume] i n Serum or PlasmaOrdered By: Kevin Grullon on 01-22-2023 Triglyceride [Mass/Vol] 100 mg/dL 0-149 [facility] Comment on above: TRIG ATP III CLASSIF ICATIONTRIG less than 150 mg/dL NormalTRIG 150-199 mg/dL Borderline highTRIG 200-500 mg/dL High TRIG greater than 500 mg/dL Very highStandard traceable to the Center for Disease Conrtrol and Prevention (CDC) test method. Urea nitrogen [Mass/volume] in Serum or PlasmaOrdered By: Kevin Grullon on 01-22-2023 Urea nitrogen [Mass/Vol] 6 mg/dL 10-20 [facility] WBC Auto (Bld) [#/Vol]Ordere d By: Kevin Grullon on 01-22-2023 WBC (Bld) [#/Vol] 6.7 10*3/uL 3.8-11.6 [facility] Basic Metabolic Panelon 12-28 Anion gap [Moles/Vol] 12.9 mmol/L Normal 6.0-15.0 [facility] Comment on above: Performed By: #### C BC BMP, HCGQUAL #### [facility] [address] Calcium [Mass/Vol] 9.7 mg/dL Normal 8.6-10.3 [facility] Comment on above: Performed By: #### C BC, BMP, HCGQUAL #### [facility] [address] [place] [address] [place] Chloride [Moles/Vol] 102 mmol/L Normal 98-107 [facility] Comment on above: Performed By: #### C BC, BMP, HCGQUAL #### [facility] [address] [place] [id number] [place] CO2 [Moles/Vol] 27.8 mmol/L Normal 21.0-31.0 [facility] Comment on above: Performed By: #### C BC, BMP, HCGQUAL #### [facility] [address] Creatinine [Mass/Vol] 0.81 mg/dL Normal 0.60-1.20 [facility] Comment on above: Performed By: #### C MISTI HENSLEY HCGQUAL #### [address] Creatinine Clr Calc Pharmacy 91.43 [facility] Comment on above: Performed By: #### C MISTI HENSLEY, HCGQUAL #### [address] GFR/1.73 sq M.predicted MDRD (S/P/Bld) [Vol rate/Area] mL/min/{1.73_m2} [facility] Comment on above: Performed By: #### C MISTI HENSLEY HCGQUAL #### [address] Glucose [Mass/Vol] 114 mg/dL High 70-100 [facility] Comment on above: Result Comment: [place] Glucose Reference Range is dependent on time and content of last meal. Glucose of more than 200 mg/dL in a nonstressed, ambulatory subject supports the diagnosis of Diabetes Mellitus. ADA recommended reference range Performed By: #### C MISTI HENSLEY HCGQUAL #### [address] Potassium [Moles/Vol] 3.7 mmol/L Normal 3.5-5.1 [facility] Comment on above: Performed By: #### C MISTI HENSLEY, HCGQUAL #### [address] Sodium [Moles/Vol] 139 mmol/L Normal 136-145 [facility] Comment on above: Performed By: #### C MISTI HENSLEY, HCGQUAL #### [address] Urea nitrogen [Mass/Vol] 6 mg/dL Low 7-25 [facility] Comment on above: Performed By: #### C MISTI HENSLEY, HCGQUAL #### [address] Basophils Auto (Bld) [#/Vol] Ordered By: Eyad Chacko on 01-21-2023 Basophils (Bld) [#/Vol] 0.1 10*3/uL 0.0-0.2 [facility] Basophils/100 WBC Auto (Bld) Ordered By: Eyad Chacko on 01-21-2023 Basophils/100 WBC (Bld) 0.8 % . [facility] CT chest w conon 01-21-2023 CT chest w con [facility] [place] [address] [place], [place] [id number] CT Scan Report Signed Patient: Brandi Gaviria MR#: [id number] : 1985 Acct:[id number] Age/Sex: 37 / F ADM Date: 01/21/23 Loc: ER Room: Type: [facility] ER Attending Dr: Copies to: Eyad Chacko DO Ordering Provider: Eyad Chacko DO Date of Service: 01/21/23 CT/CT soft tissue neck w con: dysphagia ([id number]) CT/CT chest w con: dysphagia, wt loss CLINICAL DATA: Sore throat with difficulty swallowing for the past few weeks. Weight loss and weakness. Esophageal dilatation left spurring. CT SOFT TISSUE NECK WITH CONTRAST COMPARISON: None Spiral images were obtained through the neck following 90 mL of Isovue-300. This CT exam was performed using one or more following dose reduction techniques: Automated exposure control, adjust ment of the mA and/or kV according to patient size, or use of iterative reconstruction technique. No thyroid nodularity is identified. The submandibular and parotid glands are symmetric. There is no enlargement of the adenoids or tonsils. The epiglottis and vocal cords are within normal limits. The airway is patent throughout its course, with normal appearance the mucosal surfaces. Small shotty cervical lymph nodes are present, largest in the jugulodigastric region. There is reversal of the normal cervical lordosis. No prevertebral soft tissue swelling is present. The imaged paranasal sinuses and mastoid air cells are clear. CT/CT soft tissue neck w con IMPRESSION: SHOTTY CERVICAL LYMPH NODES. NO ACUTE NECK FINDINGS. CT CHEST WITH CONTRAST COMPARISON: None Spiral images were obtained through the chest following 90 mL of Isovue-300. Images were reviewed using both narrow and wide window settings. This CT exam was performed using one or more following dose reduction techniques: Automated exposure control, adjustment of the mA and/or kV according to patient size, or use of iterative reconstruction technique. The heart is top normal in size. There is no pericardial effusion. No aortic aneurysm or dissection is identified. There is no mediastinal or hilar lymphadenopathy. There is a small amount of air at the proximal and distal thoracic esophagus. No wall thickening is noted. There is no suspected hiatal hernia or evidence of obstructing mass. There is subtle dextroscoliotic curvature. There is minor dependent atelectasis. No consolidation, pleural effusion or pneumothorax is seen. Limited cuts through the upper abdomen suggest possible fatty liver. There is fluid within the stomach. IMPRESSION: NO ACUTE INTRATHORACIC FINDINGS. IF THERE IS CONCERN FOR RECURRENT ESOPHAGEAL STRICTURE, FOLLOW-UP WITH BARIUM STUDY OR EGD COULD BE CONSIDERED. Impression dictated by: Nisa Watt M.D.01/21/2023 3:02 PM Dictation Location: [place] [address] Transcribed By: [facility] 01/21/23 1502 Dictated By: Nisa Watt MD 01/21/23 1452 Signed By: 01/21/23 1502 Normal [facility] Calcium [Mass/volume] in Ser um or PlasmaOrdered By: Eyad Chacko on 01-21-2023 Calcium [Mass/Vol] 9.7 mg/dL 8.6-10.3 [facility] Carbon dioxide, total [Moles /volume] in Serum or PlasmaOrdered By: Eyad Chacko on 01-21-2023 CO2 [Moles/Vol] 27.8 mmol/L 21.0-31.0 [facility] Chloride [Moles/volume] in S lakesha or PlasmaOrdered By: Eyad Chacko on 01-21-2023 Chloride [Moles/Vol] 102 mmol/L 98-107 [facility] Choriogonadotropin.beta subu nit [Units/volume] in Serum or PlasmaOrdered By: Eyad Chacko on 01-21-2023 HCG.beta subunit Qn Negative [facility] Complete Blood Count Auto Di ffon 01-21-2023 Basophils (Bld) [#/Vol] 0.1 10*3/uL Normal 0.0-0.2 [facility] Comment on above: Result Comment: PERF ORMED BY: [place] [address] PATHOLOGIST HEALTHCARE APPLICATIONS ANALYST MAKENNA NEWMAN M.D. Performed By: #### C BC, BMP, HCGQUAL #### [address] Basophils/100 WBC (Bld) 0.8 % Normal . [facility] Comment on above: Performed By: #### C BC, BMP, HCGQUAL #### [address] Eosinophils (Bld) [#/Vol] 0.1 10*3/uL Normal 0.0-0.45 [facility] Comment on above: Performed By: #### C BC, BMP, HCGQUAL #### [address] Eosinophils/100 WBC (Bld) 1.0 % Normal . [facility] Comment on above: Performed By: #### C BC, BMP, HCGQUAL #### [address] Erythrocyte distribution width (RBC) [Ratio] 14.1 % Normal 11.9-15.3 [facility] Comment on above: Performed By: #### C BC, BMP, HCGQUAL #### [facility] [address] [place] [address] Hematocrit (Bld) [Volume fraction] 40.9 % Normal 34.0-46.4 [facility] Comment on above: Performed By: #### C BC, BMP, HCGQUAL #### [facility] [address] [place] [address] Hemoglobin (Bld) [Mass/Vol] 13.1 g/dL Normal 11.8-15.4 [facility] Comment on above: Performed By: #### C BC, BMP, HCGQUAL #### [facility] [address] [place] [address] [place] Lymphocytes (Bld) [#/Vol] 2.2 10*3/uL Normal 1.00-4.8 [facility] Comment on above: Performed By: #### C BC BMP, HCGQUAL #### [address] Lymphocytes/100 WBC (Bld) 25.2 % Normal . [facility] Comment on above: Performed By: #### C BC BMP, HCGQUAL #### [address] MCH (RBC) [Entitic mass] 27.0 pg Normal 24.7-34.3 [facility] Comment on above: Performed By: #### C BC BMP, HCGQUAL #### [address] MCV (RBC) [Entitic vol] 84.2 fL Normal 80-100 [facility] Comment on above: Performed By: #### C BC BMP, HCGQUAL #### [address] Mean Corpuscular HGB Conc 32.1 g/dL Normal 32.0-35.0 [facility] Comment on above: Performed By: #### C BC BMP, HCGQUAL #### [address] Monocytes (Bld) [#/Vol] 0.5 10*3/uL Normal 0.0-0.8 [facility] Comment on above: Performed By: #### C BC BMP, HCGQUAL #### [place] [address] [place] Monocytes/100 WBC (Bld) 19.37 % Normal 0.00-20.00 [facility] Comment on above: Performed By: #### C BC BMP, HCGQUAL #### [address] Monocytes/100 WBC (Bld) 5.7 % Normal . [facility] Comment on above: Performed By: #### C BC, BMP, HCGQUAL #### [facility] [address] [place] [address] [place] Neutrophils (Bld) [#/Vol] 5.9 10*3/uL Normal 1.8-7.7 [facility] Comment on above: Performed By: #### C BC, BMP, HCGQUAL #### [facility] [address] Neutrophils/100 WBC (Bld) 67.3 % Normal . [facility] Comment on above: Performed By: #### C BC, BMP, HCGQUAL #### [address] NRBC% 0.2 /100{WBC} Normal 0-0.5 [facility] Comment on above: Performed By: #### C BC, BMP, HCGQUAL #### [address] Platelet mean volume (Bld) [Entitic vol] 10.1 fL Normal 6.3-10.7 [facility] Comment on above: Performed By: #### C BC, BMP, HCGQUAL #### [place] [address] [place] Platelets (Bld) [#/Vol] 312 10*3/uL Normal 150-450 [facility] Comment on above: Performed By: #### C BC, BMP, HCGQUAL #### [facility] [address] [place] [address] [place] RBC (Bld) [#/Vol] 4.86 10*6/uL Normal 3.60-5.00 [facility] Comment on above: Performed By: #### C BC, BMP, HCGQUAL #### [facility] [address] [place] [address] [place] WBC (Bld) [#/Vol] 8.8 10*3/uL Normal 3.8-11.6 [facility] Comment on above: Performed By: #### C BC, BMP, HCGQUAL #### [facility] [address] [place] [address] [place] Creatinine [Mass/volume] in Serum or PlasmaOrdered By: Eyad Chacko on 01-21-2023 Creatinine [Mass/Vol] 0.81 mg/dL 0.60-1.20 [facility] Eosinophils Auto (Bld) [#/Vo l]Ordered By: Eyad Chacko on 01-21-2023 Eosinophils (Bld) [#/Vol] 0.1 10*3/uL 0.0-0.45 [facility] Eosinophils/100 WBC Auto (Bl d)Ordered By: Eyad Chacko on 01-21-2023 Eosinophils/100 WBC (Bld) 1.0 % . [facility] Erythrocyte distribution wid th Auto (RBC) [Ratio]Ordered By: Eyad Chacko on 01-21-2023 Erythrocyte distribution width (RBC) [Ratio] 14.1 % 11.9-15.3 [facility] Glucose [Mass/volume] in Ser um or PlasmaOrdered By: Eyad Chacko on 01-21-2023 Glucose [Mass/Vol] 114 mg/dL 70-100 [facility] Comment on above: ADA recommended refe rence rangeRandom Glucose Reference Range is dependent on time and content of last meal. Glucose of more than 200 mg/dL in a nonstressed, ambulatory subject supports the diagnosis of Diabetes Mellitus. HCG,Qualitative Serumon 12-28 HCG,Qualitative Serum Negative Normal [facility] Comment on above: Result Comment: PERF ORMED BY: [place] [address] PATHOLOGIST HEALTHCARE APPLICATIONS ANALYST MAKENNA NEWMAN M.D. Performed By: #### C BC, BMP, HCGQUAL #### [address] Hematocrit Auto (Bld) [Volum e fraction]Ordered By: Eyad Chacko on 01-21-2023 Hematocrit (Bld) [Volume fraction] 40.9 % 34.0-46.4 [facility] Hemoglobin [Mass/volume] in BloodOrdered By: Eyad Chacko on 01-21-2023 Hemoglobin (Bld) [Mass/Vol] 13.1 g/dL 11.8-15.4 [facility] Leukocytes [#/volume] correc ion for nucleated erythrocytes in Blood by Automated counOrdered By: Eyad Chacko on 01-21-2023 WBC corrected for nucl RBC Auto (Bld) [#/Vol] 8.8 10*3/uL 3.8-11.6 [facility] Lymphocytes Auto (Bld) [#/Vo l]Ordered By: Eyad Chacko on 01-21-2023 Lymphocytes (Bld) [#/Vol] 2.2 10*3/uL 1.00-4.8 [facility] Lymphocytes/100 WBC Auto (Bl d)Ordered By: Eyad Chacko on 01-21-2023 Lymphocytes/100 WBC (Bld) 25.2 % . [facility] MCH Auto (RBC) [Entitic mass ]Ordered By: Eyad Chacko on 01-21-2023 MCH (RBC) [Entitic mass] 27.0 pg 24.7-34.3 [facility] MCHC Auto (RBC) [Mass/Vol]Or dered By: Eyad Chacko on 01-21-2023 MCHC (RBC) [Mass/Vol] 32.1 g/dL 32.0-35.0 [facility] MCV Auto (RBC) [Entitic vol] Ordered By: Eyad Chacko on 01-21-2023 MCV (RBC) [Entitic vol] 84.2 fL 80-100 [facility] Monocyte distribution width [Entitic volume] in Blood by AutomatedOrdered By: Eyad Chacko on 01-21-2023 Monocyte distribution width Auto (Bld) [Entitic vol] 19.37 % 0.00-20.00 [facility] Monocytes Auto (Bld) [#/Vol] Ordered By: Eyad Chacko on 01-21-2023 Monocytes (Bld) [#/Vol] 0.5 10*3/uL 0.0-0.8 [facility] Monocytes/100 WBC Auto (Bld) Ordered By: Eyad Chacko on 01-21-2023 Monocytes/100 WBC (Bld) 5.7 % . [facility] Neutrophils Auto (Bld) [#/Vo l]Ordered By: Eyad Chacko on 01-21-2023 Neutrophils (Bld) [#/Vol] 5.9 10*3/uL 1.8-7.7 [facility] Neutrophils/100 WBC Auto (Bl d)Ordered By: Eyad Chacko on 01-21-2023 Neutrophils/100 WBC (Bld) 67.3 % . [facility] No Panel InformationOrdered By: Eyad Chacko on 01-21-2023 Estimated GFR (CKD-EPI) > 60.0 mL/Min [facility] Creatinine Clearance (Chem 91.43 [facility] Nucleated erythrocytes [Pres ence] in Blood by Automated countOrdered By: Eyad Chacko on 01-21-2023 Nucleated RBC Auto Ql (Bld) 0.2 /100{WBC} 0-0.5 [facility] Platelet mean volume Auto (B ld) [Entitic vol]Ordered By: Eyad Chacko on 01-21-2023 Platelet mean volume (Bld) [Entitic vol] 10.1 fL 6.3-10.7 [facility] Platelets Auto (Bld) [#/Vol] Ordered By: Eyad Chacko on 01-21-2023 Platelets (Bld) [#/Vol] 312 10*3/uL 150-450 [facility] Potassium [Moles/volume] in Serum or PlasmaOrdered By: Eyad Chacko on 01-21-2023 Potassium [Moles/Vol] 3.7 mmol/L 3.5-5.1 [facility] RBC Auto (Bld) [#/Vol]Ordere d By: Eyad Chacko on 01-21-2023 RBC (Bld) [#/Vol] 4.86 10*6/uL 3.60-5.00 [facility] Serum or plasma anion gap de terminationOrdered By: Eyad Chacko on 01-21-2023 Anion gap [Moles/Vol] 12.9 mmol/L 6.0-15.0 [facility] Sodium [Moles/volume] in Ser um or PlasmaOrdered By: Eyad Chacko on 01-21-2023 Sodium [Moles/Vol] 139 mmol/L 136-145 [facility] Urea nitrogen [Mass/volume] in Serum or PlasmaOrdered By: Eyad Chacko on 01-21-2023 Urea nitrogen [Mass/Vol] 6 mg/dL 7-25 [facility] WBC Auto (Bld) [#/Vol]Ordere d By: Eyad Chacko on 01-21-2023 WBC (Bld) [#/Vol] 8.8 10*3/uL 3.8-11.6 [facility] HCG ( test) Jaja d Ql (U)Ordered By: Dago Quan on 08-06-2022 HCG ( test) Ql (U) Negative [facility] HCG,Urineon 08-06-2022 Beta HCG ( test) Ql (U) Negative Normal [facility] Comment on above: Result Comment: PERF ORMED BY: [facility] [address] [place] [address] PATHOLOGIST HEALTHCARE APPLICATIONS ANALYST MAKENNA NEWMAN M.D. Performed By: #### U HCG ####[facility] [id number] [place] [address] [facility] CARDIAC CHALO ADMITon 023 CK [Catalytic activity/Vol] 60 U/L Normal 26-192 [facility] Comment on above: Performed By: #### C MP, LIPA, CMADM #### [facility] [address] [address] [address] Ricardo Sue CK.MB [Mass/Vol] ng/mL Normal <=3.60 [facility] Comment on above: Performed By: #### C MP, LIPA, CMADM #### [facility] [address] [address] [address] Ricardo Sue HSTROP <4.0 Normal 4.0-51.3 [facility] Comment on above: Result Comment: CUT- OFF POINTS HAVE BEEN ESTABLISHED BASED ON THE FOURTH UNIVERSAL DEFINITIONS OF MYOCARDIAL INFARCTION. THE UPPER REFERENCE LIMIT (URL) OF TROPONIN, DEFINED THE 99TH PERCENTILE OF cTnI DISTRIBUTION IN A REFERENCE POPULATION, HAS BEEN CONFIRMED THE DECISION THRESHOLD FOR MD DIAGNOSIS. Performed By: #### C MP, LIPA, CMADM #### [facility] [address] [address] [address] Ricardo Sue LADY 24 ng/mL Normal 9-82 [facility] Comment on above: Performed By: #### C MP, LIPA, CMADM #### [facility] [address] [place] [address] Dr. Ricardo Sue CBC AUTO DIFFon 05-04-2022 BASO # 0.1 103/ul Normal 0.0-0.1 [facility] Comment on above: Performed By: #### C BC #### [facility] [address] [place] [address] Dr. Ricardo Sue Basophils/100 WBC (Bld) 0.9 % Normal 0.2-2.0 [facility] Comment on above: Performed By: #### C BC #### [facility] [address] [place] [address] Dr. Ricardo Sue EO # 0.3 103/ul Normal 0.0-0.7 [facility] Comment on above: Performed By: #### C BC #### [facility] [address] [place] [address] Dr. Ricardo Sue Eosinophils/100 WBC (Bld) 2.1 % Normal 0.9-7.0 [facility] Comment on above: Performed By: #### C BC #### [facility] [address] [place] [address] Dr. Ricardo Sue Erythrocyte distribution width (RBC) [Ratio] 13.0 % Normal 11.0-15.0 [facility] Comment on above: Performed By: #### C BC #### [facility] [address] [place] [address] Dr. Ricardo Sue Hematocrit (Bld) [Volume fraction] 41.8 % Normal 36.0-48.0 [facility] Comment on above: Performed By: #### C BC #### [facility] [address] [place] [address] Dr. Ricardo Sue Hemoglobin (Bld) [Mass/Vol] 12.8 g/dL Normal 12.0-16.0 [facility] Comment on above: Performed By: #### C BC #### [facility] [address] [place] [address] Dr. Ricardo Sue IG # 0.03 10e3/ul Normal 0.00-0.03 [facility] Comment on above: Performed By: #### C BC #### [facility] [address] [place] [address] Dr. Ricardo Sue IG % 0.2 % Normal 0.0-0.5 [facility] Comment on above: Performed By: #### C BC #### [facility] [address] [place] [address] Dr. Ricardo Sue LYMPH # 3.5 103/ul Normal 1.2-3.8 [facility] Comment on above: Performed By: #### C BC #### [facility] [address] [place] [address] Dr. Ricardo Sue Lymphocytes/100 WBC (Bld) 27.9 % Normal 20.5-60.0 [facility] Comment on above: Performed By: #### C BC #### [facility] [address] [place] [address] Dr. Ricardo Sue MANUAL DIFF REQ NO Normal [facility] Comment on above: Performed By: #### C BC #### [facility] [address] [place] [address] Dr. Ricardo Sue MCH (RBC) [Entitic mass] 27.6 pg Normal 26.7-34.0 [facility] Comment on above: Performed By: #### C BC #### [facility] [address] [place] [address] Dr. Ricardo Sue MCHC (RBC) [Mass/Vol] 30.6 g/dL Normal 29.9-35.2 [facility] Comment on above: Performed By: #### C BC #### [facility] [address] [place] [address] Dr. Ricardo Sue MCV (RBC) [Entitic vol] 90.3 fL Normal 81.0-99.0 [facility] Comment on above: Performed By: #### C BC #### [facility] [address] [place] [address] Dr. Ricardo Sue MONO # 0.5 103/ul Normal 0.3-0.8 [facility] Comment on above: Performed By: #### C BC #### [facility] [address] [place] [address] Dr. Ricardo Sue Monocytes/100 WBC (Bld) 3.9 % Normal 1.7-12.0 [facility] Comment on above: Performed By: #### C BC #### [facility] [address] [place] [address] Dr. Ricardo Sue NEUT # 8.0 103/ul Critically high 1.4-6.5 [facility] Comment on above: Performed By: #### C BC #### [facility] [address] [place] [address] Dr. Ricardo Sue Neutrophils/100 WBC (Bld) 65.0 % Normal 43.0-75.0 [facility] Comment on above: Performed By: #### C BC #### [facility] [address] [place] [address] Dr. Ricardo Sue Platelet mean volume (Bld) [Entitic vol] 11.7 fL Normal 9.5-13.5 [facility] Comment on above: Performed By: #### C BC #### [facility] [address] [place] [address] Dr. Ricardo Sue PLT 338 103/ul Normal 150-450 [facility] Comment on above: Performed By: #### C BC #### [facility] [address] [place] [address] Dr. Ricardo Sue RBC 4.63 106/ul Normal 4.20-5.40 [facility] Comment on above: Performed By: #### C BC #### [facility] [address] [place] [address] Dr. Ricardo Sue WBC 12.4 103/ul Critically high 4.0-11.0 [facility] Comment on above: Performed By: #### C BC #### [facility] [address] [place] [address] Dr. Ricardo Sue LIPASEon 05-04-2022 Lipase [Catalytic activity/Vol] 170.0 U/L Normal 73.0-393.0 [facility] Comment on above: Performed By: #### C MP, LIPA, CMADM #### [facility] [address] [place] [address] Dr. Ricardo Sue PREG HCG QUALon 05-04-2022 , QUAL Negative Normal NEGATIVE [facility] Comment on above: Performed By: #### P REG #### [facility] [address] [place] [address] Dr. Ricardo Sue PROF 14(COMP METB)on 023 Albumin [Mass/Vol] 3.6 g/dL Normal 3.4-5.0 [facility] Comment on above: Performed By: #### C MP, LIPA, CMADM #### [facility] [address] [place] [address] Dr. Ricardo Sue Albumin/Globulin [Mass ratio] 0.8 {ratio} Normal [facility] Comment on above: Performed By: #### C MP, LIPA, CMADM #### [facility] [address] [place] [address] Dr. Ricardo Sue ALP [Catalytic activity/Vol] 83 U/L Normal 46-116 [facility] Comment on above: Performed By: #### C MP, LIPA, CMADM #### [facility] [address] [place] [address] Dr. Ricardo Sue ALT [Catalytic activity/Vol] 19 U/L Normal 14-59 [facility] Comment on above: Performed By: #### C MP, LIPA, CMADM #### [facility] [address] [place] [address] Dr. Ricardo Sue Anion gap [Moles/Vol] 12.7 mmol/L Normal [facility] Comment on above: Performed By: #### C MP, LIPA, CMADM #### [facility] [address] [place] [address] Dr. Ricardo Sue AST [Catalytic activity/Vol] 17 U/L Normal 15-37 [facility] Comment on above: Performed By: #### C MP, LIPA, CMADM #### [facility] [address] [place] [address] Dr. Ricardo Sue Bilirubin [Mass/Vol] 0.2 mg/dL Normal 0.2-1.0 [facility] Comment on above: Performed By: #### C MP, LIPA, CMADM #### [facility] [address] [address] [address] Ricardo Sue Calcium [Mass/Vol] 9.0 mg/dL Normal 8.5-10.1 [facility] Comment on above: Performed By: #### C MP, LIPA, CMADM #### [facility] [address] [address] [address] Ricardo Sue Chloride [Moles/Vol] 104 mmol/L Normal 98-107 [facility] Comment on above: Performed By: #### C MP, LIPA, CMADM #### [facility] [address] [place] [address] Dr. Ricardo Sue CO2 [Moles/Vol] 25.2 mmol/L Normal 21.0-32.0 [facility] Comment on above: Performed By: #### C MP, LIPA, CMADM #### [facility] [address] [place] [address] Dr. Ricardo Sue Creatinine [Mass/Vol] 0.79 mg/dL Normal 0.55-1.02 [facility] Comment on above: Performed By: #### C MP, LIPA, CMADM #### [facility] [address] [place] [address] Dr. Ricardo Sue EGFR-AF CONGOLESE >60 Normal >=60 [facility] Comment on above: Performed By: #### C MP, LIPA, CMADM #### [facility] [address] [place] [address] Dr. Ricardo Sue EGFR-NON AF CONGOLESE >60 Normal >=60 [facility] Comment on above: Performed By: #### C MP, LIPA, CMADM #### [facility] [address] [place] [address] Dr. Ricardo Sue Globulin (S) [Mass/Vol] 4.4 g/dL Normal [facility] Comment on above: Performed By: #### C MP, LIPA, CMADM #### [facility] [address] [place] [address] Dr. Ricardo Sue Glucose [Mass/Vol] 113 mg/dL Critically high 74-106 [facility] Comment on above: Performed By: #### C DOMINIQUE MCKEON CMADM #### [facility] [address] [address] [address] Ricardo Sue Potassium [Moles/Vol] 3.9 mmol/L Normal 3.5-5.1 [facility] Comment on above: Performed By: #### C DOMINIQUE MCKEON CMADM #### [facility] [address] [address] [address] Ricardo Sue Protein [Mass/Vol] 8.0 g/dL Normal 6.4-8.2 [facility] Comment on above: Performed By: #### C DOMINIQUE MCKEON CMADM #### [facility] [address] [place] [address] Dr. Ricardo Sue Sodium [Moles/Vol] 138 mmol/L Normal 136-145 [facility] Comment on above: Performed By: #### C DOMINIQUE MCKEON CMADM #### [facility] [address] [place] [address] Dr. Ricardo Sue Urea nitrogen [Mass/Vol] 9.0 mg/dL Normal 7.0-18.0 [facility] Comment on above: Performed By: #### C DOMINIQUE MCKEON CMADM #### [facility] [address] [place] [address] Dr. Ricardo Sue Urea nitrogen/Creatinine [Mass ratio] 11.4 mg/mg Normal [facility] Comment on above: Performed By: #### C DOMINIQUE MCKEON CMADM #### [facility] [address] [place] [address] Dr. Ricardo Sue XR CHEST 2 Von 05-04-2022 XR CHEST 2 V EXAM: XR CHEST 2 V HISTORY: SHORTNESS OF BREATH COMPARISON: 04/24/2019 TECHNIQUE: Upright PA and lateral chest x-ray FINDINGS: The heart is not enlarged and the vasculature is not distended. There is slight peribronchial cuffing bilaterally. No acute infiltrate, effusion or pneumothorax is identified. The osseous structures are grossly intact. IMPRESSION: No acute infiltrate or evidence of cardiac decompensation. Mild bilateral bronchitis is suggested and may be present. Electronically authenticated by: JACE BISWAS Date: 2022-05-04 18:04 Normal [facility] Vital Signs Date Time Vital Sign Value Performing Clinician Facility 03-30-2023 10:34-0500 Diastolic blood pressure 77 mm[Hg] DO Bri Rumschlag Work Phone: [facility] 03-30-2023 10:34-0500 Heart rate 71 /min DO Bri Rumschlag Work Phone: [facility] 03-30-2023 10:34-0500 Respiratory rate 16 /min DO Bri Rumschlag Work Phone: [facility] 03-30-2023 10:34-0500 SaO2% (BldA) [Mass fraction] 100 % DO Bri Rumschlag Work Phone: [facility] 03-30-2023 10:34-0500 Systolic blood pressure 106 mm[Hg] DO Rbi Rumschlag Work Phone: [facility] 03-30-2023 07:56-0500 Body height 157.48 cm DO Bri Rumschlag Work Phone: [facility] 03-30-2023 07:56-0500 Body weight 79.83 kg DO Bri Rumschlag Work Phone: [facility] 03-02-2023 14:15-0500 Body height 157.48 cm Imad Asaad Other [facility] Other 03-02-2023 14:15-0500 Body mass index (BMI) [Ratio] 32.92 kg/m2 Imad Asaad Other [facility] Other 03-02-2023 14:15-0500 Body weight 81.65 kg Imad Asaad Other [facility] Other 01-22-2023 17:37-0400 Body temperature 98.7 [degF] DO Bri Rumschlag Work Phone: [facility] 01-22-2023 17:37-0400 Diastolic blood pressure 66 mm[Hg] DO Bri Rumschlag Work Phone: [facility] 01-22-2023 17:37-0400 Heart rate 76 /min DO Bri Rumschlag Work Phone: [facility] 01-22-2023 17:37-0400 Respiratory rate 16 /min DO Bri Rumschlag Work Phone: [facility] 01-22-2023 17:37-0400 SaO2% (BldA) [Mass fraction] 100 % DO Bri Rumschlag Work Phone: [facility] 01-22-2023 17:37-0400 Systolic blood pressure 116 mm[Hg] DO Bri Rumschlag Work Phone: [facility] 01-22-2023 15:29-0400 Body height 157.48 cm DO Bri Rumschlag Work Phone: [facility] 01-22-2023 05:39-0400 Body weight 79 kg DO Bri Rumschlag Work Phone: [facility] 01-21-2023 16:47-0400 Diastolic blood pressure 83 mm[Hg] DO Bri Rumschlag Work Phone: [facility] 01-21-2023 16:47-0400 Heart rate 75 /min DO Bri Rumschlag Work Phone: [facility] 01-21-2023 16:47-0400 Respiratory rate 18 /min DO Bri Rumschlag Work Phone: [facility] 01-21-2023 16:47-0400 SaO2% (BldA) [Mass fraction] 99 % DO Bri Rumschlag Work Phone: [facility] 01-21-2023 16:47-0400 Systolic blood pressure 111 mm[Hg] DO Bri Rumschlag Work Phone: [facility] 01-21-2023 12:10-0400 Body height 157.48 cm DO Bri Rumschlag Work Phone: [facility] 01-21-2023 12:10-0400 Body temperature 98.4 [degF] DO Bri Rumschlag Work Phone: [facility] 01-21-2023 12:10-0400 Body weight 77.11 kg DO Bri Rumschlag Work Phone: [facility] 08-06-2022 15:25-0400 Diastolic blood pressure 89 mm[Hg] DO Bri Rumschlag Work Phone: [facility] 08-06-2022 15:25-0400 Heart rate 70 /min DO Bri Rumschlag Work Phone: [facility] 08-06-2022 15:25-0400 Respiratory rate 16 /min DO Bri Rumschlag Work Phone: [facility] 08-06-2022 15:25-0400 SaO2% (BldA) [Mass fraction] 99 % DO Bri Rumschlag Work Phone: [facility] 08-06-2022 15:25-0400 Systolic blood pressure 128 mm[Hg] DO Bri Rumschlag Work Phone: [facility] 08-06-2022 13:34-0400 Body height 157.48 cm DO Bri Rumschlag Work Phone: [facility] 08-06-2022 13:34-0400 Body weight 81.64 kg DO Bri Rumschlag Work Phone: [facility] 06-23-2022 14:45-0400 Body height 157.48 cm Imad Asaad Other [facility] Other 06-23-2022 14:45-0400 Body mass index (BMI) [Ratio] 33.65 kg/m2 Imad Asaad Other [facility] Other 06-23-2022 14:45-0400 Body weight 83.46 kg Imad Asaad Other [facility] Other 06-23-2022 14:45-0400 Diastolic blood pressure 69 mm[Hg] Imad Asaad Other [facility] Other 06-23-2022 14:45-0400 Systolic blood pressure 119 mm[Hg] Imad Asaad Other [facility] Other Encounters Encounter Date Encounter Type Care Provider Facility Start: 08-18-2023 End: 08-18-2023 ambulatory PABLO VEE Not Available Start: 08-06-2023 End: 08-06-2023 ambulatory PABLO VEE Not Available Start: 08-02-2023 End: 08-02-2023 ambulatory KAREN BROWNLEE Not Available Start: 04-27-2023 End: 04-27-2023 ambulatory NURY H TIMMIS Not Available Start: 04-21-2023 End: 04-22-2023 ambulatory NURY TIMMIS Malaika garner Start: 03-30-2023 End: 03-30-2023 ambulatory Imad Asaad Facility:[facility] Start: 03-30-2023 End: 03-30-2023 Admission to same day surgery center DO Bri Rumschlag Work Phone: [facility] Work Phone: Start: 03-30-2023 End: 03-30-2023 ambulatory DO Bri Rumschlag Work Phone: [facility] Work Phone: Start: 03-19-2023 End: 03-19-2023 ambulatory Samantha Capellan Facility:[facility] Start: 03-19-2023 End: 03-19-2023 ambulatory DO Bri Rumschlag Work Phone: [facility] Work Phone: Start: 03-19-2023 End: 03-19-2023 Patient encounter procedure DO Bri Rumschlag Work Phone: [facility] [place] Work Phone: Start: 03-10-2023 End: 03-10-2023 ambulatory NURY RODRIGUEZ Not Available Start: 03-02-2023 End: 03-02-2023 ambulatory Imad Asaad Other [facility] Other Start: 03-02-2023 Office outpatient ne w 45 minutes Imad Asaad [facility] Start: 02-04-2023 End: 02-04-2023 ambulatory Imad Asaad Other [facility] Other Start: 02-04-2023 Telephone encounter Imad Asaad [facility] Start: 01-27-2023 End: 01-27-2023 ambulatory Bri Rumschlag Facility:[facility] Start: 01-27-2023 End: 01-27-2023 ambulatory DO Bri Rumschlag Work Phone: [facility] Work Phone: Start: 01-27-2023 End: 01-27-2023 Patient encounter procedure DO Bri Rumschlag Work Phone: [facility] [place] Work Phone: Start: 01-22-2023 End: 01-22-2023 ambulatory Imad Asaad Other [facility] Other Start: 01-22-2023 Telephone encounter Imad Asaad [facility] Start: 01-21-2023 End: 01-22-2023 ambulatory Bri Rumschlag Facility:[facility] Start: 01-21-2023 End: 01-22-2023 Evaluation and management of inpatient DO Bri Rumschlag Work Phone: [facility] [place] [facility] Work Phone: Start: 01-21-2023 End: 01-22-2023 observation encounter DO Bri Rumschlag Work Phone: [facility] Work Phone: Start: 08-06-2022 End: 08-06-2022 ambulatory Imad Asaad Facility:[facility] Start: 08-06-2022 End: 08-06-2022 Admission to same day surgery center DO Bri Rumschlag Work Phone: [facility] Work Phone: Start: 08-06-2022 End: 08-06-2022 ambulatory DO Bri Rumschlag Work Phone: [facility] Work Phone: Start: 06-23-2022 End: 06-23-2022 ambulatory Imad Asaad Other [facility] Other Start: 06-23-2022 Office outpatient ne w 30 minutes Imad Asaad [facility] Start: 05-04-2022 End: 05-04-[address] NONE LISTED REQUEST Facility: Procedures Date Procedure Procedure Detail Performing Clinician Start: 03-30-2023 Esophagogastroduodenoscopy DO Bri Rums chlag Work Phone: Start: 03-19-2023 MRI of head DO Bri Rumschlag Work Phone: Start: 01-22-2023 Esophagogastroduodenoscopy DO Bri Rums chlag Work Phone: Start: 01-21-2023 CT of soft tissues of neck with contrast DO Bri Rumschlag Work Phone: Start: 01-21-2023 CT of thorax with contrast DO Bri Erazo [facility] Work Phone: Start: 08-06-2022 Esophagogastroduodenoscopy DO Bri rangel Work Phone: Plan of Treatment Date Care Activity Detail Author Start: 03-30-2023 [facility] Start: 01-22-2023 [facility] Start: 01-22-2023 Esophagogastroduodenoscopy [facility] EGD (Not Applicable) [facility] Start: 01-21-2023 Hospital admission [facility] Start: 01-21-2023 Referral to design chief [facility] Start: 01-21-2023 Patient referral to dietitian [facility] Start: 08-06-2022 [facility] Patient Education [facility] Work Phone: Patient referral [facility] Work Phone: [facility] Payers Date Payer Category Payer Self-pay [id number] 1985 Unknown [id number] 2.16.84 [id number] 1985 Unknown [id number] 2.16.8 [id number] 1985 Unknown [id number] 2.16.84 [id number] 1985 Unknown [id number] 2.16.84 [id number] 1985 Unknown [id number] 2.16.84 [id number] 1985 Unknown [id number] 2.16.84 [id number] 1985 Unknown [id number] 2.16.840 .[id number] 1959 Unknown [id number] Unknown [id number] 2.16.8 40.1.026513.3.579.2.531 Unknown [id number] 2.16.8 40.1.990465.3.579.2.531 Unknown [id number] 2.16.8 40.1.854950.3.579.2.531 Unknown [id number] 2.16.8 [id number] Unknown [id number] 2.16.8 [id number] Social History Date Type Detail Facility Unknown if ever smoked [facility] Other Sex Assigned At Sex Assigned At Bir th [facility] Other Start: 08-06-2022 End: 03-30-2023 Tobacco smoking status NHIS Never smoked tobacco (finding) [facility] Start: 1985 Sex Assigned At Female F [facility] Goals Date Patient Goal Desired Activity /State Functional Status Date Assessment Result Facility 01-22-2023 Functional status Patient at Baseline [facility] Work Phone: 01-21-2023 Functional status Patient at Baseline [facility] Work Phone: Mental Status Date Assessment Result Facility 01-22-2023 Cognitive function Cognitive Sta tus Patient at Baseline [facility] Work Phone: 01-21-2023 Cognitive function Cognitive Sta tus Patient at Baseline [facility] Work Phone: Clinical Notes 06-23-2022 to 03-30-2023 Note Date & Type Note Facility 03-30-2023 Procedure note [facility] 03-02-2023 Evaluation note Encounter Date Diagnosis Assessment Notes Feb, Dysphagia (ICD-10 - R13.10) Feb, GERD (gastroesopha geal reflux disease) (ICD-10 - K21.9) [facility] Other 10-27-2023 Consult note Author Dago Quan [facility] January 22, 2023 8:35am Note Date/Time January 22, 2023 8 :35am [facility] [address] [place] [address] Gastroenterology Consult Note Signed Patient: Brandi Gaviria MR#: [id number] : 1985 Acct:[id number] Age/Sex: 37 / F Adm Date: 3 Loc: Room: [address] [place] [address] Type: ADM INOo Attending Dr: Kevin Grullon MD Copies to: DO Kevin Joseph MD Imad Asaad, MD~ HPI Data of Consult Date of Consultation: 01/22/23 Requesting Physician: Kevin Grullon MD Consult Narrative History of present illness: Ms. Gaviria is a 37 year old female with history of esophageal stricture who gastroenterology is consulted for dysphagia. Patient patient reports dysphagia to solid food. She has been able to swallow liquids and pur?ed food. She reports 10 pounds unintentional weight loss. Patient denies melena hematochezia or other complaints. cc:: CC: Kevin Grullon MD Review of Systems Review of Systems All other systems reviewed & are negative unless noted below or in HPI [facility] Medical History (Updated 01/21/23 @ 15:49 by [place]) GERD (gastroesophageal reflux disease) Migraine Surgical History History of repair of ACL Family History (Updated 08/06/22 @ 13:40 by Alayna Murphy RN) Father Lung disease Social History Smoking Status: Never smoker Substance Use Type: None Meds Medications and Allergies Allergies No Known Allergies Allergy (Verified 01/21/23 12:10) Home Medications loratadine 10 mg tablet (Claritin) 10 mg PO DAILY 08/06/22 [History Confirmed 01/21/23] clindamycin palmitate HCl 75 mg/5 mL oral solution (Clindamycin Pediatric) 300 mg PO Q6H 01/21/23 [History Confirmed 01/21/23] fluticasone propionate 50 mcg/actuation nasal spray,suspension 1 spray intranasal DAILY 01/21/23 [History Confirmed 01/21/23] montelukast 10 mg tablet 10 mg PO DAILY 01/21/23 [History Confirmed 01/21/23] prednisolone 15 mg/5 mL oral solution PO 01/21/23 [History] Exam Physical Exam Vital Signs: Temp Pulse Resp BP Pulse Ox O2 Del Method 98.2 F 67 18 107/70 97 Room Air 01/21/23 17:24 01/22/23 06:45 01/22/23 06:45 01/22/23 06:45 01/22/23 04:00 01/22/23 04:00 Narrative: General appearance: Pleasant, NAD Skin: No rashes or jaundice Oropharynx: MMM Neck: Supple Cardiac: No murmurs Lungs: CTA Abdomen: Soft, NT, ND, BS+. No HSM. Extremities: No edema. Neuro: Ox3. Results Labs Labs: Laboratory Results - last 24 hr 01/21/23 01/21/23 01/22/23 12:54 12:54 05:25 Corrected WBC 8.8 6.7 Uncorrected WBC Count 8.8 6.7 RBC 4.86 4.16 Hgb 13.1 11.5 L Hct 40.9 35.1 MCV 84.2 84.4 MCH 27.0 27.7 MCHC 32.1 32.8 RDW 14.1 14.2 Plt Count 312 244 MPV 10.1 10.3 Neut % (Auto) 67.3 52.8 Lymph % (Auto) 25.2 37.3 Burleigh % (Auto) 5.7 6.4 Eos % (Auto) 1.0 2.0 Baso % (Auto) 0.8 1.5 Nucleat RBC Rel Count 0.2 0.1 Neut # (Auto) 5.9 3.5 Lymph # (Auto) 2.2 2.5 Burleigh # (Auto) 0.5 0.4 Eos # (Auto) 0.1 0.1 Baso # (Auto) 0.1 0.1 Monocyte Dist Width 19.37 PT INR APTT PHA Creatinine Clear 91.43 Sodium 139 Potassium 3.7 Chloride 102 Carbon Dioxide 27.8 Anion Gap 12.9 BUN 6 L Creatinine 0.81 Est GFR (CKD-EPI) > 60.0 Glucose 114 H Calcium 9.7 Total Bilirubin AST ALT Alkaline Phosphatase Total Protein Albumin Globulin Albumin/Globulin Ratio Triglycerides Cholesterol LDL Cholesterol, Calc VLDL Cholesterol HDL Cholesterol Cholesterol/HDL Ratio TSH 3rd Generation HCG, Qual Negative Urine HCG, Qual 01/22/23 01/22/23 01/22/23 05:25 05:25 06:54 Corrected WBC Uncorrected WBC Count RBC Hgb Hct MCV MCH MCHC RDW Plt Count MPV Neut % (Auto) Lymph % (Auto) Burleigh % (Auto) Eos % (Auto) Baso % (Auto) Nucleat RBC Rel Count Neut # (Auto) Lymph # (Auto) Burleigh # (Auto) Eos # (Auto) Baso # (Auto) Monocyte Dist Width PT 13.2 H INR 1.1 APTT 30.8 PHA Creatinine Clear 97.37 Sodium 141 Potassium 4.0 Chloride 105 Carbon Dioxide 31.6 H Anion Gap 8.4 BUN 6 L Creatinine 0.77 Est GFR (CKD-EPI) > 60.0 Glucose 101 H Calcium 8.9 Total Bilirubin 0.3 AST 21 ALT 26 Alkaline Phosphatase 55 Total Protein 6.1 L Albumin 3.4 L Globulin 2.7 Albumin/Globulin Ratio 1.3 Triglycerides 100 Cholesterol 130 L LDL Cholesterol, Calc 90 VLDL Cholesterol 20 HDL Cholesterol 20 L Cholesterol/HDL Ratio 6.5 TSH 3rd Generation 1.46 HCG, Qual Urine HCG, Qual Negative A&P - Gastroenterology Assessment/Plan (1) Dysphagia: Code(s): R13.10 - Dysphagia, unspecified Status: Acute (2) History of esophageal stricture: Code(s): Z87.19 - Personal history of other diseases of the digestive system Status: Acute (3) Weight loss: Code(s): R63.4 - Abnormal weight loss Status: Acute Plan Ms. Gaviria is a 37 year old female with history of esophageal stricture who gastroenterology is consulted for dysphagia. Will arrange for EGD with dilation Continue PPI Please keep the patient n.p.o. Documented By: Dago Quan MD 01/22/23 0833 Signed By: <Electronically signed by Dago Quan MD> 01/22/23 0835 [facility] Work Phone: 1(111) 784-478910-27-2023 [facility] History and physical note Author Kevin Grullon [facility] January 21, 2023 8:40pm Note Date/Time January 21, 2023 8 :01pm [facility] [address] [place] [address] Hospitalist H&P Signed Patient: Brandi Gaviria MR#: [id number] : 1985 Acct:[id number] Age/Sex: 37 / F Adm Date: 3 Loc: Room: [address] [place] [address] Type: ADM INOo Attending Dr: Kevin Grullon MD Copies to: DO Kevin Joseph MD~ HPI DATE OF EXAMINATION: 01/21/23 CHIEF COMPLAINT: Trouble swallowing HISTORY OF PRESENT ILLNESS: Ms. Gaviria is a 37-year-old female with PMH of severe seasonal allergies, dysphagia with recent EGD 5 months ago who presents to the emergency department with dysphagia complaints. Patient reports that over the last 3 weeks, she had the onset of viral URI symptoms including: Nonproductive cough, nasal congestion, and then had the onset of dysphagia. She notes that her appetite has become poor and that she has not been able to tolerate solid food due to inability to swallow. She has pain with swallowing as well as difficulty swallowing. She initially had issues with solids, now she has issues with liquids as well. She reports no significant solid food over the last 3 weeks. She notes no significant abdominal pain, nausea, diarrhea or constipation. She reports a 10 pound weight loss during this 3-week period. Of note, patient had a presentation that was very similar to this in July 2022 and underwent upper endoscopy and dilation at that time. Since that procedure, patient has been feeling well up until 3 weeks prior. This presentation is exactly similar to her last presentation. She also notes that her mother and aunt have had similarissues with esophageal strictures. Patient was evaluated by her primary care physician who referred her to ENT doctor 4 days prior to hospitalization. They did start her on clindamycin and nasopharyngeal scope was performed in office, which was largely unremarkable. She was sent to the ED today for CT imaging of the soft tissue of the neck whichwas negative. In the emergency department, lab work within normal limits. Case was discussed between ED attending and GI on-call. They recommended upper endoscopy in the a.m. Case was then discussed between myself and ED attending and patient was admitted to hospitalist service for further management. Review of Systems Review of Systems Review of systems: 10 point ROS reviewed and is negative except for that which is noted above in HPI [facility] Medical History (Updated 01/21/23 @ 15:49 by [place]) GERD (gastroesophageal reflux disease) Migraine Surgical History History of repair of ACL Family History (Updated 08/06/22 @ 13:40 by Alayna Murphy RN) Father Lung disease Social History Smoking Status: Never smoker Substance Use Type: None Meds Medications and Allergies Allergies No Known Allergies Allergy (Verified 01/21/23 12:10) Home Medications loratadine 10 mg tablet (Claritin) 10 mg PO DAILY 08/06/22 [History Confirmed 01/21/23] clindamycin palmitate HCl 75 mg/5 mL oral solution (Clindamycin Pediatric) 300 mg PO Q6H 01/21/23 [History Confirmed 01/21/23] fluticasone propionate 50 mcg/actuation nasal spray,suspension 1 spray intranasal DAILY 01/21/23 [History Confirmed 01/21/23] montelukast 10 mg tablet 10 mg PO DAILY 01/21/23 [History Confirmed 01/21/23] prednisolone 15 mg/5 mL oral solution PO 01/21/23 [History] Exam Physical Exam Vital Signs: Temp Pulse Resp BP Pulse Ox O2 Del Method 98.2 F 78 14 121/85 98 Room Air 01/21/23 17:24 01/21/23 17:24 01/21/23 17:24 01/21/23 17:24 01/21/23 17:24 01/21/23 17:36 Narrative: Constitutional: Young, AA female, resting in bed, tired and ill-appearing HEENT: Moist mucous membranes, neck supple Cardiovascular: RRR, no M/R/G, normal S1 and S2, no JVD Respiratory: Lungs clear to auscultation bilaterally, no wheezes, rales or rhonchi GI: Soft, NTND, normoactive bowel sounds : Deferred Neuro: AAO x3, no focal deficits. CN III-XII grossly intact, Strength 5/5 throughout Extremities: No clubbing, cyanosis or edema Psych: Patient calm, cooperative and conversant Results Lab Results Labs: Laboratory Last Values Corrected WBC 8.8 X10E3/uL (3.8-11.6) 01/21/23 12:54 Uncorrected WBC Count 8.8 x10E3/uL (3.8-11.6) 01/21/23 12:54 RBC 4.86 X10E6/uL (3.60-5.00) 01/21/23 12:54 Hgb 13.1 g/dL (11.8-15.4) 01/21/23 12:54 Hct 40.9 % (34.0-46.4) 01/21/23 12:54 MCV 84.2 fl (80-100) 01/21/23 12:54 MCH 27.0 pg (24.7-34.3) 01/21/23 12:54 MCHC 32.1 g/dL (32.0-35.0) 01/21/23 12:54 RDW 14.1 % (11.9-15.3) 01/21/23 12:54 Plt Count 312 x10E3/uL (150-450) 01/21/23 12:54 MPV 10.1 fl (6.3-10.7) 01/21/23 12:54 Neut % (Auto) 67.3 % (.) 01/21/23 12:54 Lymph % (Auto) 25.2 % (.) 01/21/23 12:54 Burleigh % (Auto) 5.7 % (.) 01/21/23 12:54 Eos % (Auto) 1.0 % (.) 01/21/23 12:54 Baso % (Auto) 0.8 % (.) 01/21/23 12:54 Nucleat RBC Rel Count 0.2 /100 WBC (0-0.5) 01/21/23 12:54 Neut # (Auto) 5.9 x10E3/uL (1.8-7.7) 01/21/23 12:54 Lymph # (Auto) 2.2 x10E3/uL (1.00-4.8) 01/21/23 12:54 Burleigh # (Auto) 0.5 x10E3/uL (0.0-0.8) 01/21/23 12:54 Eos # (Auto) 0.1 x10E3/uL (0.0-0.45) 01/21/23 12:54 Baso # (Auto) 0.1 x10E3/uL (0.0-0.2) 01/21/23 12:54 Monocyte Dist Width 19.37 % (0.00-20.00) 01/21/23 12:54 PHA Creatinine Clear 91.43 01/21/23 12:54 Sodium 139 mmol/L (136-145) 01/21/23 12:54 Potassium 3.7 mmol/L (3.5-5.1) 01/21/23 12:54 Chloride 102 mmol/L (98-107) 01/21/23 12:54 Carbon Dioxide 27.8 mmol/L (21.0-31.0) 01/21/23 12:54 Anion Gap 12.9 mEq/L (6.0-15.0) 01/21/23 12:54 BUN 6 mg/dL (7-25) L 01/21/23 12:54 Creatinine 0.81 mg/dL (0.60-1.20) 01/21/23 12:54 Est GFR (CKD-EPI) > 60.0 mL/Min 01/21/23 12:54 Glucose 114 mg/dL (70-100) H 01/21/23 12:54 Calcium 9.7 mg/dL (8.6-10.3) 01/21/23 12:54 HCG, Qual Negative 01/21/23 12:54 Assessment & Plan Assessment/Plan (1) Dysphagia: (2) History of esophageal stricture: (3) Weight loss: Plan Dysphagia Probable esophageal stricture Persistent symptoms over the past few weeks. This has been associated with 10 pound weight loss. -N.p.o. after midnight for possible upper endoscopy in the a.m. -Consult gastroenterology for scope; they are aware -IV hydration with D5 LR -Speech therapy assessment for diet recommendations DVT prophylaxis: Lovenox CODE STATUS: Full code IP vs OBS Justification Based on differential dx, clinical care plan, and risk of adverse events, if untreated, in my clinical judgement this patient requires an acute care setting as: OBSERVATION because of an expectation of an under 2 midnight stay. Estimated length of stay (# of days): 2 Documented By: Kevin Grullon MD 1958 Signed By: <Electronically signed by Kevin Grullon MD> 01/21/232039 [facility] Work Phone: 1(352) 274-323005-11-2023 [facility] Evaluation note* Encounter Date Diagnosis Assessment Notes Treatment Notes Treatment Clinical Notes May, Dysphagia (ICD-10 - R13.10) Arrange for EGD Encouraged pt to cut back on Ibuprofen use. Encouraged pt to alternate Tylenol & Ibuprofen. [facility] Other Evaluation noteNo assessment information available [facility] Work Phone: Evaluation note* Diagnosis Onset Date Resolution Status Dysphagia acute History of esophageal stricture acute Weight loss acute [facility] Work Phone: Evalumlqpx noteNo InformationNort EZBOB Other History and physical note Author Dago Quan [facility] August 06, 2022 2:42pm Note Date/Time August 06, 2022 2:42p m [facility] [address] [place] [address] Gastroenterology H&P Signed Patient: Brandi Gaviria MR#: [id number] : 1985 Acct:[id number] Age/Sex: 37 / F Adm Date: 3 Loc: Room: Type: [facility] Attending Dr: Dago Quan MD Copies to: DO Dago Joseph MD~ Date of Service: 08/06/2022 HISTORY & PHYSICAL: Patient's history with special attention to the cardiovascular, pulmonary systems and the current problem was reviewed with the patient immediately prior to the procedure. Present medications and doses reviewed in the EMR. Allergies and pertinent laboratory tests were also reviewedat this time in the EMR. The physical examination, as below, was then performed. Indication, assessment and HPI: 37-year-old female here for EGD for evaluation of dysphagia Family history of GI malignancy? No PHYSICAL EXAMINATION Mouth and Pharynx : Moist mucus membranes, normal dentition Cardiac: Regular rate, regular rhythm Pulmonary: Clear to auscultation bilaterally, no wheezing Neurological: Alert and oriented x3, no focal deficits noted Abdomen: Abdomen soft, non-tender REVIEW OF SYSTEMS Constitutional: Denies malaise, fevers Cardiovascular: Denies chest pain, palpitations Respiratory: Denies shortness of breath, wheezing Gastrointestinal: Per HPI Genitourinary: Denies dysuria, polyuria Musculoskeletal: Denies joint swelling, joint stiffness Neurological: Denies numbness, tingling Integumentary: Denies rashes, skin lesions Endocrine: Denies fatigue, weight loss Written informed consent obtained from the patient. Risks (including but not limited to perforation, infection, bloating, bleeding, need for emergent surgeryand loss of life), benefits and alternatives explained and questions answered. The patient verbalized understanding. Based on history patient is an appropriate candidate for the procedure. Dago Quan M.D. Documented By: Dago Quan MD 08/06/221441 Signed By: <Electronically signed by Dago Quan MD> 08/06/221441 [facility] Work Phone: History and physical note Author Dago Quan [facility] March 30, 2023 9:46am Note Date/Time March 30, 2023 9: 46am [facility] [address] [place] [address] Gastroenterology H&P Signed Patient: Brandi Gaviria MR#: [id number] : 1985 Acct:[id number] Age/Sex: 37 / F Adm Date: 4 Loc: Room: Type: [facility] Attending Dr: Dago Quan MD Copies to: DO Dago Joseph MD~ Date of Service: 03/30/2023 HISTORY & PHYSICAL: Patient's history with special attention to the cardiovascular, pulmonary systems and the current problem was reviewed with the patient immediately prior to the procedure. Present medications and doses reviewed in the EMR. Allergies and pertinent laboratory tests were also reviewedat this time in the EMR. The physical examination, as below, was then performed. Indication, assessment and HPI: 37-year-old female with esophageal stricture here for EGD with dilation Family history of GI malignancy? No PHYSICAL EXAMINATION Mouth and Pharynx : Moist mucus membranes, normal dentition Cardiac: Regular rate, regular rhythm Pulmonary: Clear to auscultation bilaterally, no wheezing Neurological: Alert and oriented x3, no focal deficits noted Abdomen: Abdomen soft, non-tender REVIEW OF SYSTEMS Constitutional: Denies malaise, fevers Cardiovascular: Denies chest pain, palpitations Respiratory: Denies shortness of breath, wheezing Gastrointestinal: Per HPI Genitourinary: Denies dysuria, polyuria Musculoskeletal: Denies joint swelling, joint stiffness Neurological: Denies numbness, tingling Integumentary: Denies rashes, skin lesions Endocrine: Denies fatigue, weight loss Written informed consent obtained from the patient. Risks (including but not limited to perforation, infection, bloating, bleeding, need for emergent surgeryand loss of life), benefits and alternatives explained and questions answered. The patient verbalized understanding. Based on history patient is an appropriate candidate for the procedure. Dago Quan M.D. Documented By: Dago Quan MD 03/30/23 0945 Signed By: <Electronically signed by Dago Quan MD> 03/30/23 0966 [facility] Work Phone: Hisrgkg general Narrative - Reported* Type Description Date Medical History anxiety Medical History chronic depression Surgical History ACL left knee [facility] Other History general Narrative - Reported* Type Description Date Medical History anxiety Medical History chronic depression Surgical History ACL left knee Hospitalization History SEE ABOVE [facility] Other Hospital Discharge instructions Additional Instructions DISCHARGE INSTRUCTIONS FOR UPPER ENDOSCOPY WHAT TO EXPECT: - You may feel full, gassy or cramping after your procedure. In some cases, this may be from a few hours to a day. Walking may help relieve the discomfort. - Your throat may feel sore today from the scope that the doctor passed through your throat to visualize your stomach. Take a throat lozenge or suck on ice to ease the discomfort. - You may notice some streaks of blood in your sputum if the doctor has taken a biopsy. - You should begin to recover from anesthesia within 1 hour of the procedure, however may feel groggy for the next 24 hours. DO's AND DON'Ts: - Call your doctor right away if you have a hard abdomen, severe pain, vomiting or if you cough up large amounts of blood. - Call your doctor if you develop any rashes, hives or difficulty breathing. - If you take 81 mg aspirin for your heart it is safe to resume this medication. - If you take other blood thinner medications your doctor will instruct you when these can safely be resumed. - Do NOT drive for 24 hours. - Do NOT operate machinery such as power tools, lawn mowers, snow blowers, sewing machines, etc. for 24 hours. - Avoid alcoholic beverages and drugs for allergies, nerves, or sleep. - Do NOT stay alone. Do NOT leave your child unattended. - Do NOT make important personal or business decisions or sign any legal documents. - Eat solid foods and drink liquids in smaller amounts than usual until normal appetite returns. If you should experience an upset stomach, liquids high in sugar content (soda, Gene-Aid, non-acid juices) are recommended. - Do NOT smoke. - Do take it easy today. You need not stay in bed, but avoid strenuous activities such as jogging or working out. FOLLOW UP & RECOMMENDATIONS: - Dysphagia precautions explained including: avoid cold liquids, sit upright or stand after eating for at least two hours, lubricate your food with water or gravy, chew food slowly and eat smaller bites of food, increase number of liquid based meals in your diet, and straighten the back during swallowing. -Notify the doctor if you have any problems. -Follow up with PCP. -Office number [phone]. [facility] Work Phone: Hospital Discharge instructions Additional Instructions Speech Therapy recommedations: *Take pills whole, with water, one at a time *Sit upright at 90 degress for all oral intake and remain sitting upright for 30 minutes after *Take small bites and sips *Alternate liquids and solids *Pace yourself and eat slowly [facility] Work Phone: Hospital Discharge instructions Additional Instructions DISCHARGE INSTRUCTIONS FOR UPPER ENDOSCOPY WHAT TO EXPECT: - You may feel full, gassy or cramping after your procedure. In some cases, this may be from a few hours to a day. Walking may help relieve the discomfort. - Your throat may feel sore today from the scope that the doctor passed through your throat to visualize your stomach. Take a throat lozenge or suck on ice to ease the discomfort. - You may notice some streaks of blood in your sputum if the doctor has taken a biopsy. - You should begin to recover from anesthesia within 1 hour of the procedure, however may feel groggy for the next 24 hours. DO's AND DON'Ts: - Call your doctor right away if you have a hard abdomen, severe pain, vomiting or if you cough up large amounts of blood. - Call your doctor if you develop any rashes, hives or difficulty breathing. - If you take 81 mg aspirin for your heart it is safe to resume this medication. - If you take other blood thinner medications your doctor will instruct you when these can safely be resumed. - Do NOT drive for 24 hours. - Do NOT operate machinery such as power tools, lawn mowers, snow blowers, sewing machines, etc. for 24 hours. - Avoid alcoholic beverages and drugs for allergies, nerves, or sleep. - Do NOT stay alone. Do NOT leave your child unattended. - Do NOT make important personal or business decisions or sign any legal documents. - Eat solid foods and drink liquids in smaller amounts than usual until normal appetite returns. If you should experience an upset stomach, liquids high in sugar content (soda, Gene-Aid, non-acid juices) are recommended. - Do NOT smoke. - Do take it easy today. You need not stay in bed, but avoid strenuous activities such as jogging or working out. FOLLOW UP & RECOMMENDATIONS: -Notify the doctor if you have any problems. -Follow up pathology -Dysphagia precautions: avoid cold liquids, sit upright or stand after eating for at least two hours, lubricate your food with water or gravy, chew food slowly and eat smaller bites of food, increase number of liquid based meals in your diet, and straighten the back during swallowing. -Office number [phone]. [facility] Work Phone: Summary Purpose Family History No Family History Records Found Relationship Condition Age at Onset Recorded Date/T jameel father Disorder of lung Unknown Advance Directives No Advanced Directives Records Found Advance Directive Response Recorded Date/ Time Advance Directives No September 26 1 2:25pm Advance Directive Response Recorded Date/ Time Advance Directives No September 26 1 1:25pm Chief Complaint and Reason for Visit Chief Complaint Dysphagia, Odynophag ia Chief Complaint sore throat Reason for Visit Dysphagia History of esophageal stricture Weight loss Chief Complaint sore throat R13.10 Z87.19 Reason for Visit Dysphagia History of esophageal stricture Weight loss Chief Complaint sore throat R13.10 Z87.19 r42 r26.89 Reason for Visit Dysphagia History of esophageal stricture Weight loss Chief Complaint sore throat R13.10 Z87.19 r42 r26.89 Dysphagia Reason for Visit Dysphagia History of esophageal stricture Weight loss Additional Source Comments INFORMATION SOURCE (unrecogn ized section and content) DATE CREATED AUTHOR 05/06/2022 [facility] DATE CREATED AUTHOR AUTHOR'S ORGANIZ ATION 04/09/2023 [facility] DATE CREATED AUTHOR AUTHOR'S ORGANIZ ATION 04/24/2023 [facility] DATE CREATED AUTHOR AUTHOR'S ORGANIZ ATION 08/20/2023 [facility] EPIC REASON FOR VISIT (unrecogniz ed section and content) PATIENT IS HERE [facility] [place] FOR GERD AND GLOBUS SENSATIONFOLLOW UP APPT?Clinical Acute MedicineDysphagia Care Teams (unrecognized sec tion and content) Team Status: Active Member Role Status Dates Bri Fredrickg , DO Primary Care Provider Active Team Status: Inactive Member Role Status Dates Bri Timmylag , DO Primary Care Provider Active Eyad Chacko DO Emergency Provider Active Kevin Grullon MD Admit Provider, Attending Linda branch Active Alferdo Gardner MD Other Provider Active Alejandro Wolff DO Other Provider Active Kirby Centeno MD Other Provider Active Orlando Chaparro MD Other Provider Active Bianka Aiken MD Other Provider Active Tran John MD Other Provider Active Jose Clemente APRN Other Provider Active Dago Quan MD Other Provider Active Sharif Rinaldi MD Other Provider Active Team Status: Active Member Role Status Dates Bri Loree , DO Primary Care Provider Active Eyad Chacko DO Emergency Provider Active Kevin Grullon MD Admit Provider, Attending Linda branch Active Team Status: Inactive Member Role Status Dates Dago Quan MD Attending Provider Active Bri Arevalo DO Primary Care Provider Active Team Status: Inactive Member Role Status Dates Bri Rumleong , DO Primary Care Provider, Referring Provider Active Kevin Grullon MD Attending Provider Active Team Status: Inactive Member Role Status Dates Bri Arevalo , DO Primary Care Provider Active Samantha Capellan APRN Attending Provider Active Team Status: Inactive Member Role Status Dates Bri Arevalo , DO Primary Care Provider Active Dago Quan MD Attending Provider Active Goals (unrecognized section and content) Goals may be documented in a n alternate section FOR RECORDS PERTAINING TO PATIENTS WHO ARE OR HAVE BEEN ENROLLED IN A CHEMICAL DEPENDENCY/SUBSTANCEABUSE PROGRAM, SOME INFORMATION MAY BE OMITTED. This clinical summary was aggregated from multiple sources. Caution should be exercised in using it in the provision of clinical care. This summary normalizes information from multiple sources, and as a consequence, information in this document may materially change the coding, format and clinical context of patient data. In addition, data may be omitted in some cases. CLINICAL DECISIONS SHOULD BE BASED ON THE PRIMARY CLINICAL RECORDS. [facility]. provides no warranty or guarantee of the accuracy or completeness of information in this document.
== END 2023-09-22 20:50 | disposition home or self-care (01) ==
LOC: SLEEP 20:50
PROVIDERS: PCP Psychiatry & Neurology Neurology; Visit Provider Psychiatry & Neurology Neurology
DX: G47.11 Idiopathic hypersomnia with long sleep time (principal); F51.01 Primary insomnia
CPT/HCPCS: 95810